=== PATIENT | male | born 1990 | race Caucasian/White ===

== ENCOUNTER 2023-01-25 14:17 | Inpatient (IN) ==
--- NOTE | 2023-01-25 14:57 | ED Triage Note ---
Date of Service January 25, 2023 History of Present Illness This patient was briefly evaluated while in triage. An abbreviated physical exam was performed. This patient is a 32-year-old Male who presents to the ED for evaluation of fever 106 today and vomiting. Tympanic thermometer. Developed L groin pain after vomiting. Maybe had a sore throat and some congestion today. No chest pain. Feeling short of breath now that he's in the ED. Does endorse anxiety but does not feel that is contributing to his symptoms today. Took 325 acetaminophen prior to arrival. Physical Exam CONSTITUTIONAL: uncomfortable appearing SKIN: pink, warm, dry CARDIAC: Tachycardic rate and regular rhythm RESPIRATORY: in no respiratory distress, lungs clear to auscultation ABDOMEN: Tenderness in left inguinal region Initial orders for labs and / or imaging were placed and patient was placed in the waiting area until a bed is available. Please see further documentation for the full ED course.
[2023-01-25 15:35] LABS: Albumin Globulin Ratio 1.5 (0.9-2); Albumin Level 4.8 gm/dl (3.4-5.0); BUN Creatinine Ratio 17.3 (10-20); Basophils # (auto) 0.04 K/uL (0.00-0.20); Basophils % (auto) 0.2 %; Bilirubin,Total 0.7 mg/dl (0.2-1.0); Calcium 9.8 mg/dl (8.6-10.3); Creatinine Clr Calc Pharmacy 167.7 ml/min; Eosinophils # (auto) 0.03 K/uL (0.00-0.50); Eosinophils % (auto) 0.2 %; Est GFR (African American) 116.1 ml/min; Est GFR (Non-African American) 100.2 ml/min; Globulin 3.3 gm/dl (2.5-4.0); Hematocrit (blood only) 42.7 % (42.0-52.0); Hemoglobin 14.9 g/dl (14.0-18.0); Immature Granulocytes # (auto) 0.15 K/uL (0.01-0.20); Immature Granulocytes % (auto) 0.9 %; Lymphocytes # (auto) 0.83 K/uL (1.20-3.40); Lymphocytes % (auto) 5.1 %; Mean Corpuscular Hemoglobin 29.3 pg (25.0-34.0); Mean Corpuscular Hgb Conc 34.9 g/dL (32.0-36.0); Mean Corpuscular Volume 83.9 fL (80.0-100.0); Mean Platelet Volume 9.6 fL (9.4-12.4); Monocytes # (auto) 0.95 K/uL (0.11-0.59); Monocytes % (auto) 5.8 %; Neutrophils % (auto) 87.8 %; Platelet Count 213 K/uL (130-400); Potassium 3.7 mmol/L (3.5-5.1); RDW Coefficient of Variation 12.9 % (11.5-14.5); Red Blood Count 5.09 M/uL (4.70-6.10); Total Protein 8.1 gm/dl (6.0-8.3)
[2023-01-25 15:41] LABS: Troponin I High Sensitivity 3.9 pg/ml (0-20)
[2023-01-25] MEDS ORDERED: SODIUM CHLORIDE 0.9% 1,000 ML IV ONE ×2 (15:59→16:10)
[2023-01-25] MEDS ORDERED: CEFEPIME 2,000 MG/20 ML VIAL IV STA (15:59)
[2023-01-25] MEDS ORDERED: ALBUTEROL HFA 8 GM INHALER INH ONE (16:00)
[2023-01-25 16:06] LABS: Adenovirus PCR Not Detected (NotDetected); Bordetella parapertussis PCR Not Detected (NotDetected); Bordetella pertussis PCR Not Detected (NotDetected); Chlamydia pneumoniae PCR Not Detected (NotDetected); Coronavirus 229E PCR Not Detected (NotDetected); Coronavirus CoV-2 (COVID19)PCR Not Detected (NotDetected); Coronavirus HKU1 PCR Not Detected (NotDetected); Coronavirus NL63 PCR Not Detected (NotDetected); Coronavirus OC43PCR Not Detected (NotDetected); Human Metapneumovirus PCR Not Detected (NotDetected); Influenza A PCR Not Detected (NotDetected); Influenza B PCR Not Detected (NotDetected); Mycoplasma pneumoniae PCR Not Detected (NotDetected); Parainfluenza Virus 1 PCR Not Detected (NotDetected); Parainfluenza Virus 2 PCR Not Detected (NotDetected); Parainfluenza Virus 3 PCR Not Detected (NotDetected); Parainfluenza Virus 4 PCR Not Detected (NotDetected); Respiratory Syncytial VirusPCR Not Detected (NotDetected); Rhinovirus/Enterovirus PCR Not Detected (NotDetected)
[2023-01-25] MEDS ORDERED: KETOROLAC TROMETHAMINE 15 MG/ML VIAL IV STA (16:10)
--- NOTE | 2023-01-25 16:14 | Emergency Department Note ---
Impression & Plan Sepsis, Cellulitis, Tachycardia, Leukocytosis, Pneumonia, Elevated lactic acid level, Hypomagnesemia ED Provider Note NAME: AMADO KIRKPATRICK AGE: 32 SEX: M : 1990 ARRIVES VIA: Walk-In INFORMANT: [Patient][] ED PROVIDER(S): [Jb Horta MD] CHIEF COMPLAINT: Fever HISTORY OF PRESENT ILLNESS: The patient is a 32-year-old male who states that he may have had a slight sore throat for a few days but otherwise felt well. This morning around 6 hours ago, he began shivering with sweats. He vomited. He began noticing pain in the left groin. He felt a little bit short of breath at 1 point. He has not noticed a rash, has been no diarrhea or urinary complaints. No abdominal pain. He has not been coughing, no stuffy nose. The patient did take a COVID test at home and it was negative. The patient states that he has prediabetes, he is otherwise healthy. On further questioning, the patient admits that he may have actually noticed a little bit of swelling of his left leg last night before bed. This is the same leg that was painful today. PMHx/PSHx: See Below SOCIAL HISTORY: See Below. PHYSICAL EXAM: GENERAL: Patient is in no acute distress. HEENT: No acute trauma, normocephalic atraumatic, mucous membranes moist, no nasal congestion. NECK: No stridor, no adenopathy, no meningismus, trachea is midline. LUNGS: Clear to auscultation bilaterally, no wheeze, no rhonchi, breath sounds equal. HEART: Mildly tachycardic, regular rhythm, no murmurs. ABDOMEN: Soft, nontender, bowel sounds positive, no peritonitis. EXTREMITIES: No cyanosis. The patient does have warmth, erythema to the left distal leg around an area of an old scar. He is tender in the area of the left groin. No crepitus felt. NEUROLOGIC: Oriented x 3, no acute motor or sensory deficits, no focal weakness. SKIN: No jaundice, no diaphoresis. Groin: There is no scrotal erythema or evidence for infection. No rash. DIFFERENTIAL DIAGNOSIS: Bacteremia or sepsis, necrotizing fasciitis, cellulitis, pneumonia, dehydration, electrolyte imbalance, tickborne illness, UTI, viral illness, among others. EMERGENCY DEPARTMENT COURSE/PROCEDURES: Prior/Outside records reviewed: None. ECG per my interpretation: Indication was possible sepsis. The ECG shows sinus tachycardia with a rate of 143. There is some baseline artifact that appears fairly diffuse. There is no ST elevation, no PVCs. There is some poor R wave progression. QTc is 429. Continuous Cardiac Monitoring per my interpretation: An order was placed for continuous cardiac monitoring. The monitor shows a rate of 148 with sinus tachycardia. Critical Care Note: I have personally spent 52 minutes of critical care time in the direct management of this patient. This includes bedside care, interpretati on of diagnostic studies, and testing, discussion with consultants, patient, and family members, and other required patient management activities. This 52 minutes is in excess of all separately billable procedures. MEDICAL DECISION MAKING: There is a moderate leukocytosis, this would be consistent with infection. There is no anemia or platelet count. No concerning electrolyte abnormality. Lactic acid level was elevated consistent with infection and possible sepsis. Magnesium was slightly low at 1.5. No concerning liver enzyme elevation. Procalcitonin level was not not elevated making serious bacterial infection less likely. ECG showed a sinus tachycardia, no obvious ischemia. Cardiac enzyme testing x1 was not consistent with acute cardiac injury. Urinalysis showed ketones, no infection. Babesia and anaplasmosis smears were negative, the send out testing is pending. Lyme disease testing returned negative. Respiratory bio fire returned completely negative. Chest film per my review does show a mid right lung pneumonia. No pneumothorax. Left femur CT shows adenopathy, no evidence for abscess or necrotizing fasciitis. On exam, patient did have a left lower extremity cellulitis. He was febrile and tachycardic. The patient does not meet criteria for sepsis. He was aggressively managed. He received IV saline, 2 L. He was given IV magnesium, IV Toradol, IV cefepime and IV vancomycin. The patient appears to have 2 potential sources for infection. The left lower extremity and the right lung. Hospitalization is indicated. I spoke with the patient and case management, the on-call hospitalist was consulted. DISPOSITION: Patient's presentation and findings warrant a hospital stay. Past Med/Surg History Medical History Obesity SAMINA on CPAP Prediabetes Surgical History History of dental surgery S/P left knee arthroscopy Social History Smoking Status: Never smoker Preferred Language: Mongolian Feels Safe at Home: Yes Allergies Allergies Allergy/AdvReac Type Severity Reaction Status Date / Time No Known Allergies Unverified 01/25/23 19:59 Home Meds Home Medications Medication Instructions Recorded Confirmed chlorpheniramine 2 2 tab PO DIRECTED PRN Flu 01/25/23 01/25/23 mg-phenylephrine 5 Symptoms mg-acetaminophen 325 mg tablet loratadine 10 mg tablet (Claritin) 10 mg PO DAILY PRN allergies 01/25/23 01/25/23 naproxen sodium 220 mg tablet 220 mg PO BID PRN Fever Or Pain 01/25/23 01/25/23 (Aleve) Results & Data (ED) Vital Signs Vital Signs - 24 hr 01/25/23 14:46 01/25/23 16:22 01/25/23 16:22 Temperature 37.9 C H Temperature Source Oral Pulse Rate 148 H Pulse Rate [Right Finger] 129 H Respiratory Rate 20 22 Respiratory Depth Normal Blood Pressure 196/98 H Blood Pressure Mean 130 Pulse Oximetry 98 Oxygen Delivery Method Room Air Sepsis Recent Fever Within 48 Hours Yes Sepsis New/Unexplained Change in Mental Status N/A Sepsis Action Taken by Nursing No Action Required Home Medications Current Medication List: was personally reviewed by me Laboratory Data Attestation: I reviewed the patient's lab results. 01/25/23 15:04 01/25/23 15:04 Lab Results 01/25/23 01/25/23 01/25/23 Range/Units 15:03 15:04 15:04 WBC 16.40 H (4.8-10.8) K/ul RBC 5.09 (4.70-6.10) M/uL Hgb 14.9 (14.0-18.0) g/dl Hct 42.7 (42.0-52.0) % MCV 83.9 (80.0-100.0) fL MCH 29.3 (25.0-34.0) pg MCHC 34.9 (32.0-36.0) g/dL RDW Std Deviation 39.0 (36.4-46.3) fL RDW Coeff of Nickolas 12.9 (11.5-14.5) % Plt Count 213 (130-400) K/uL MPV 9.6 (9.4-12.4) fL Immature Gran % (Auto) 0.9 % Neut % (Auto) 87.8 % Lymph % (Auto) 5.1 % [place] % (Auto) 5.8 % Eos % (Auto) 0.2 % Baso % (Auto) 0.2 % Neut # (Auto) 14.40 H (1.40-6.50) K/uL Lymph # (Auto) 0.83 L (1.20-3.40) K/uL [place] # (Auto) 0.95 H (0.11-0.59) K/uL Eos # (Auto) 0.03 (0.00-0.50) K/uL Baso # (Auto) 0.04 (0.00-0.20) K/uL Immature Gran # (Auto) 0.15 (0.01-0.20) K/uL Sodium 133 L (136-145) mmol/L Potassium 3.7 (3.5-5.1) mmol/L Chloride 99 (98-107) mmol/L Carbon Dioxide 24 (21-32) mmol/L Anion Gap 10 (3-11) BUN 17 (6-23) mg/dl Creatinine 0.98 (0.6-1.4) mg/dl Est Cr Clr Drug Dosing 167.7 ml/min Est GFR ( Amer) 116.1 ml/min Est GFR (Non-Af Amer) 100.2 ml/min BUN/Creatinine Ratio 17.3 (10-20) Glucose 133 H (70-99(Fasting)) mg/dl Lactate (0.4-2.0) mmol/L Calcium 9.8 (8.6-10.3) mg/dl Magnesium 1.5 L (1.7-2.4) mg/dl Total Bilirubin 0.7 (0.2-1.0) mg/dl AST 17 (13-39) U/L ALT 27 (7-52) U/L Alkaline Phosphatase 63 (34-104) U/L Troponin I High Sens 3.9 (0-20) pg/ml Total Protein 8.1 (6.0-8.3) gm/dl Albumin 4.8 (3.4-5.0) gm/dl Globulin 3.3 (2.5-4.0) gm/dl Albumin/Globulin Ratio 1.5 (0.9-2) Procalcitonin (0-0.5) ng/ml Urine Color Urine Appearance (Clear) Urine pH (4.5-7.5) Ur Specific [place] (1.000-1.030) Urine Protein (Negative) Urine Glucose (UA) (Negative) Urine Ketones (Negative) Urine Blood (Negative) Urine Nitrite (Negative) Urine Bilirubin (Negative) Urine Urobilinogen (Negative) Ur Leukocyte Esterase (Negative) Urine WBC (Auto) (0-5) /hpf Urine RBC (Auto) (0-4) /hpf U Hyaline Cast (Auto) (0-5) /lpf U Epithel Cells (Auto) (0-5) /lpf Urine Bacteria (Auto) (Negative) Adenovirus (PCR) Not Detected (NotDetected) Anaplasma Smear Babesia Smear B. pertussis DNA (PCR) Not Detected (NotDetected) B.parapertussis DNA PCR Not Detected (NotDetected) Lyme Disease IgG Ab (Negative) Lyme Disease IgM Ab (Negative) C. pneumoniae DNA (PCR) Not Detected (NotDetected) Coronavirus OC43 (PCR) Not Detected (NotDetected) Coronavirus HKU1 (PCR) Not Detected (NotDetected) Coronavirus 229E (PCR) Not Detected (NotDetected) SARS-CoV-2 (PCR) Not Detected (NotDetected) Coronavirus NL63 (PCR) Not Detected (NotDetected) Human Metapneumovir PCR Not Detected (NotDetected) Influenza Type A (PCR) Not Detected (NotDetected) Influenza Type B (PCR) Not Detected (NotDetected) M. pneumoniae (PCR) Not Detected (NotDetected) Parainfluenza 1 (PCR) Not Detected (NotDetected) Parainfluenza 2 (PCR) Not Detected (NotDetected) Parainfluenza 3 (PCR) Not Detected (NotDetected) Parainfluenza 4 (PCR) Not Detected (NotDetected) RSV (PCR) Not Detected (NotDetected) Entero/Rhino (PCR) Not Detected (NotDetected) 01/25/23 01/25/23 01/25/23 Range/Units 15:04 15:05 16:20 WBC (4.8-10.8) K/ul RBC (4.70-6.10) M/uL Hgb (14.0-18.0) g/dl Hct (42.0-52.0) % MCV (80.0-100.0) fL MCH (25.0-34.0) pg MCHC (32.0-36.0) g/dL RDW Std Deviation (36.4-46.3) fL RDW Coeff of Nickolas (11.5-14.5) % Plt Count (130-400) K/uL MPV (9.4-12.4) fL Immature Gran % (Auto) % Neut % (Auto) % Lymph % (Auto) % [place] % (Auto) % Eos % (Auto) % Baso % (Auto) % Neut # (Auto) (1.40-6.50) K/uL Lymph # (Auto) (1.20-3.40) K/uL [place] # (Auto) (0.11-0.59) K/uL Eos # (Auto) (0.00-0.50) K/uL Baso # (Auto) (0.00-0.20) K/uL Immature Gran # (Auto) (0.01-0.20) K/uL Sodium (136-145) mmol/L Potassium (3.5-5.1) mmol/L Chloride (98-107) mmol/L Carbon Dioxide (21-32) mmol/L Anion Gap (3-11) BUN (6-23) mg/dl Creatinine (0.6-1.4) mg/dl Est Cr Clr Drug Dosing ml/min Est GFR ( Amer) ml/min Est GFR (Non-Af Amer) ml/min BUN/Creatinine Ratio (10-20) Glucose (70-99(Fasting)) mg/dl Lactate 2.6 H* (0.4-2.0) mmol/L Calcium (8.6-10.3) mg/dl Magnesium (1.7-2.4) mg/dl Total Bilirubin (0.2-1.0) mg/dl AST (13-39) U/L ALT (7-52) U/L Alkaline Phosphatase (34-104) U/L Troponin I High Sens (0-20) pg/ml Total Protein (6.0-8.3) gm/dl Albumin (3.4-5.0) gm/dl Globulin (2.5-4.0) gm/dl Albumin/Globulin Ratio (0.9-2) Procalcitonin 0.30 (0-0.5) ng/ml Urine Color Urine Appearance (Clear) Urine pH (4.5-7.5) Ur Specific [place] (1.000-1.030) Urine Protein (Negative) Urine Glucose (UA) (Negative) Urine Ketones (Negative) Urine Blood (Negative) Urine Nitrite (Negative) Urine Bilirubin (Negative) Urine Urobilinogen (Negative) Ur Leukocyte Esterase (Negative) Urine WBC (Auto) (0-5) /hpf Urine RBC (Auto) (0-4) /hpf U Hyaline Cast (Auto) (0-5) /lpf U Epithel Cells (Auto) (0-5) /lpf Urine Bacteria (Auto) (Negative) Adenovirus (PCR) (NotDetected) Anaplasma Smear See Comment Babesia Smear See Comment B. pertussis DNA (PCR) (NotDetected) B.parapertussis DNA PCR (NotDetected) Lyme Disease IgG Ab Negative (Negative) Lyme Disease IgM Ab Negative (Negative) C. pneumoniae DNA (PCR) (NotDetected) Coronavirus OC43 (PCR) (NotDetected) Coronavirus HKU1 (PCR) (NotDetected) Coronavirus 229E (PCR) (NotDetected) SARS-CoV-2 (PCR) (NotDetected) Coronavirus NL63 (PCR) (NotDetected) Human Metapneumovir PCR (NotDetected) Influenza Type A (PCR) (NotDetected) Influenza Type B (PCR) (NotDetected) M. pneumoniae (PCR) (NotDetected) Parainfluenza 1 (PCR) (NotDetected) Parainfluenza 2 (PCR) (NotDetected) Parainfluenza 3 (PCR) (NotDetected) Parainfluenza 4 (PCR) (NotDetected) RSV (PCR) (NotDetected) Entero/Rhino (PCR) (NotDetected) 01/25/23 01/25/23 Range/Units 17:20 18:24 WBC (4.8-10.8) K/ul RBC (4.70-6.10) M/uL Hgb (14.0-18.0) g/dl Hct (42.0-52.0) % MCV (80.0-100.0) fL MCH (25.0-34.0) pg MCHC (32.0-36.0) g/dL RDW Std Deviation (36.4-46.3) fL RDW Coeff of Nickolas (11.5-14.5) % Plt Count (130-400) K/uL MPV (9.4-12.4) fL Immature Gran % (Auto) % Neut % (Auto) % Lymph % (Auto) % [place] % (Auto) % Eos % (Auto) % Baso % (Auto) % Neut # (Auto) (1.40-6.50) K/uL Lymph # (Auto) (1.20-3.40) K/uL [place] # (Auto) (0.11-0.59) K/uL Eos # (Auto) (0.00-0.50) K/uL Baso # (Auto) (0.00-0.20) K/uL Immature Gran # (Auto) (0.01-0.20) K/uL Sodium (136-145) mmol/L Potassium (3.5-5.1) mmol/L Chloride (98-107) mmol/L Carbon Dioxide (21-32) mmol/L Anion Gap (3-11) BUN (6-23) mg/dl Creatinine (0.6-1.4) mg/dl Est Cr Clr Drug Dosing ml/min Est GFR ( Amer) ml/min Est GFR (Non-Af Amer) ml/min BUN/Creatinine Ratio (10-20) Glucose (70-99(Fasting)) mg/dl Lactate 1.9 (0.4-2.0) mmol/L Calcium (8.6-10.3) mg/dl Magnesium (1.7-2.4) mg/dl Total Bilirubin (0.2-1.0) mg/dl AST (13-39) U/L ALT (7-52) U/L Alkaline Phosphatase (34-104) U/L Troponin I High Sens (0-20) pg/ml Total Protein (6.0-8.3) gm/dl Albumin (3.4-5.0) gm/dl Globulin (2.5-4.0) gm/dl Albumin/Globulin Ratio (0.9-2) Procalcitonin (0-0.5) ng/ml Urine Color Yellow Urine Appearance Clear (Clear) Urine pH 5.5 (4.5-7.5) Ur Specific [place] > 1.045 H (1.000-1.030) Urine Protein Trace H (Negative) Urine Glucose (UA) Negative (Negative) Urine Ketones Trace H (Negative) Urine Blood Negative (Negative) Urine Nitrite Negative (Negative) Urine Bilirubin Negative (Negative) Urine Urobilinogen Negative (Negative) Ur Leukocyte Esterase Negative (Negative) Urine WBC (Auto) 1-5 (0-5) /hpf Urine RBC (Auto) 0-4 (0-4) /hpf U Hyaline Cast (Auto) 1-5 (0-5) /lpf U Epithel Cells (Auto) 10-20 H (0-5) /lpf Urine Bacteria (Auto) Negative (Negative) Adenovirus (PCR) (NotDetected) Anaplasma Smear Babesia Smear B. pertussis DNA (PCR) (NotDetected) B.parapertussis DNA PCR (NotDetected) Lyme Disease IgG Ab (Negative) Lyme Disease IgM Ab (Negative) C. pneumoniae DNA (PCR) (NotDetected) Coronavirus OC43 (PCR) (NotDetected) Coronavirus HKU1 (PCR) (NotDetected) Coronavirus 229E (PCR) (NotDetected) SARS-CoV-2 (PCR) (NotDetected) Coronavirus NL63 (PCR) (NotDetected) Human Metapneumovir PCR (NotDetected) Influenza Type A (PCR) (NotDetected) Influenza Type B (PCR) (NotDetected) M. pneumoniae (PCR) (NotDetected) Parainfluenza 1 (PCR) (NotDetected) Parainfluenza 2 (PCR) (NotDetected) Parainfluenza 3 (PCR) (NotDetected) Parainfluenza 4 (PCR) (NotDetected) RSV (PCR) (NotDetected) Entero/Rhino (PCR) (NotDetected) Administered Medications Discontinued Medications Albuterol (Albuterol Hfa 8 Gm Inhaler) 2 puffs INH NOW ONE Stop: 01/25/23 16:01 Last Admin: 01/25/23 16:25 Dose: 2 puffs Documented By: NRB Sodium Chloride (Nss) 1,000 mls @ 999 mls/hr IV .Q1H1M ONE Stop: 01/25/23 16:59 Last Infusion: 01/25/23 17:30 Dose: 0 mls/hr Documented By: Admin: 01/25/23 16:21 Dose: 999 mls/hr Documented By: NRB Cefepime HCl (Maxipime) 2,000 mg in 20 mls @ 5 mls/min IV NOW STA; Protocol Stop: 01/25/23 16:02 Last Admin: 01/25/23 16:24 Dose: 5 mls/min Documented By: NRB Sodium Chloride (Nss) 1,000 mls @ 999 mls/hr IV .Q1H1M ONE Stop: 01/25/23 17:10 Last Infusion: 01/25/23 18:17 Dose: 0 mls/hr Documented By: Admin: 01/25/23 16:22 Dose: 999 mls/hr Documented By: NRB Magnesium Sulfate/Dextrose (Magnesium Sulfate / D5w) 1 gm in 100 mls @ 100 mls/hr IV NOW STA Stop: 01/25/23 17:56 Last Infusion: 01/25/23 18:44 Dose: 0 mls/hr Documented By: Admin: 01/25/23 17:24 Dose: 100 mls/hr Documented By: NRB Vancomycin HCl 2,750 mg/ (Sodium Chloride) 555 mls @ 200 mls/hr IV NOW ONE Stop: 01/25/23 21:21 Last Admin: 01/25/23 19:56 Dose: 200 mls/hr Documented By: AB Magnesium Sulfate/Dextrose (Magnesium Sulfate / D5w) 1 gm in 100 mls @ 50 mls/hr IV ONE ONE Stop: 01/25/23 21:18 Last Admin: 01/25/23 22:03 Dose: 50 mls/hr Documented By: AB Piperacillin Sod/Tazobactam (Sod 4.5 gm/ Dextrose) 100 mls @ 200 mls/hr IV NOW ONE; Protocol Stop: 01/25/23 21:59 Last Infusion: 01/25/23 22:57 Dose: 0 mls/hr Documented By: Admin: 01/25/23 22:25 Dose: 200 mls/hr Documented By: AB Ioversol (Optiray 320 500ml) 113 ml IV ONCE ONE Stop: 01/25/23 17:13 Last Admin: 01/25/23 17:13 Dose: 113 ml Documented By: MICHELLE Ketorolac Tromethamine (Ketorolac Tromethamine 15 Mg/Ml Vial) 15 mg IV NOW STA Stop: 01/25/23 16:11 Last Admin: 01/25/23 16:23 Dose: 15 mg Documented By: GUSTAVO Imaging Data Radiologist's Impression: Chest X-Ray 01/25/23 14:50 XR chest 1V portable CLINICAL HISTORY: tachycardia, fever, vomit TECHNIQUE: Single frontal radiograph of the chest was obtained. Comparison: None available at the time of this dictation. FINDINGS: Exam is limited by underpenetration. The cardiomediastinal silhouette is normal. Airspace opacity in the right medial lower lung is nonspecific. No evidence of pleural effusion or pneumothorax. IMPRESSION: Airspace opacity in the medial right lower lung may represent atelectasis, scarring, aspiration, and/or pneumonia. ACT 112: Negative or not required by law. Electronically signed by: Kings Avalos M.D. 01/25/2023 5:[address] 01/25/23 16:10 CT femur LT w con CLINICAL HISTORY: poss deep skin infection, pain left groin fever TECHNIQUE: Multidetector row helical CT of the left thigh was performed without intravenous contrast. Coronal and sagittal reformations were obtained. Automated dose lowering techniques and/or adjustment according to patient size were utilized for this examination. CT DOSE: 1157.45 mGy.cm Comparison: None available at the time of this dictation. FINDINGS: The osseous structures are without fracture or dislocation. The joint spaces are maintained. No joint effusion is seen. 11 mm external iliac lymph node is seen on the left. Prominent left inguinal lymph nodes measure up to 18 mm in short axis. No significant fat stranding, drainable fluid collection or other acute abnormalities are seen. IMPRESSION: Lymphadenopathy is seen in the left inguinal and visualized external iliac chain, however there is no fat stranding to suggest cellulitis, and no evidence of abscess. ACT 112: Negative or not required by law. Electronically signed by: Kings Avalos M.D. 01/25/2023 6:20 PM Discharge Plan Visit Data Chief Complaint: Fever Stated Complaint: FLU LIKE SYMPTOMS, FEVER 106 ED Provider: Jb Horta Discharge Problem: Sepsis, Cellulitis, Tachycardia, Leukocytosis, Pneumonia, Elevated lactic acid level, Hypomagnesemia Patient Disposition: Admitted As Inpatient Condition: Fair Discharge Instructions Interventions: ED Discharge Assessment Last Done: 01/25/23 21:05
[2023-01-25 16:50] LABS: Magnesium 1.5 mg/dl (1.7-2.4)
[2023-01-25] MEDS ORDERED: MAGNESIUM SULFATE / D5W 1 GM/100 ML BAG IV STA (16:57)
--- NOTE | 2023-01-25 17:07 | XRay Report ---
XR chest 1V portable CLINICAL HISTORY: tachycardia, fever, vomit TECHNIQUE: Single frontal radiograph of the chest was obtained. Comparison: None available at the time of this dictation. FINDINGS: Exam is limited by underpenetration. The cardiomediastinal silhouette is normal. Airspace opacity in the right medial lower lung is nonspecific. No evidence of pleural effusion or pneumothorax. IMPRESSION: Airspace opacity in the medial right lower lung may represent atelectasis, scarring, aspiration, and/ or pneumonia. ACT 112: Negative or not required by law. Electronically signed by: Kings Avalos M.D. 01/25/2023 5:05 PM
[2023-01-25] MEDS ORDERED: OPTIRAY 320 500ml IV ONE (17:12)
[2023-01-25 17:19] LABS: Lyme Ab IgG w/WB Rflx Negative (Negative); Lyme Ab IgM w/WB Rflx Negative (Negative)
[2023-01-25 17:36] LABS: Appearance Urine Clear (Clear); Bacteria Urine Automated Negative (Negative); Bilirubin Urine Negative (Negative); Blood Urine Negative (Negative); Color Urine Yellow; Glucose Urine UA Negative (Negative); Ketones Urine Trace (Negative); Leukocyte Esterase Urine Negative (Negative); Nitrite Urine Negative (Negative); Protein Urine Trace (Negative); RBC Urine Automated 0-4 /hpf (0-4); Specific Gravity Urine > 1.045 (1.000-1.030); Urobilinogen Urine Negative (Negative); pH Urine 5.5 (4.5-7.5)
--- NOTE | 2023-01-25 18:21 | CT Scan Report ---
CT femur LT w con CLINICAL HISTORY: poss deep skin infection, pain left groin fever TECHNIQUE: Multidetector row helical CT of the left thigh was performed without intravenous contrast. Coronal and sagittal reformations were obtained. Automated dose lowering techniques and/or adjustmen t according to patient size were utilized for this examination. CT DOSE: 1157.45 mGy.cm Comparison: None available at the time of this dictation. FINDINGS: The osseous structures are without fracture or dislocation. The joint spaces are maintained. No joint effusion is seen. 11 mm external iliac lymph node is seen on the left. Prominent left inguinal lymp h nodes measure up to 18 mm in short axis. No significant fat stranding, drainable fluid collection o r other acute abnormalities are seen. IMPRESSION: Lymphadenopathy is seen in the left inguinal and visualized external iliac chain, however there is no fat stranding to suggest cellulitis, and no evidence of abscess. ACT 112: Negative or not required by law. Electronically signed by: Kings Avalos M.D. 01/25/2023 6:20 PM
[2023-01-25] MEDS ORDERED: VANCOMYCIN HCL 2,750 MG in SODIUM CHLORIDE 0.9% 500 ML IV ONE (18:35)
[2023-01-25] MEDS ORDERED: VANCOMYCIN CONSULT ACTIVE PRN (18:35)
[2023-01-25] MEDS ORDERED: MAGNESIUM SULFATE / D5W 1 GM/100 ML BAG IV ONE (19:19)
--- NOTE | 2023-01-25 19:53 | History & Physical Report ---
Date of Service January 25, 2023 Assessment & Plan (1) Severe sepsis: (2) Cellulitis: Plan: Admit to [facility] with telemetry Patient presenting from home with fever (reported 105 at home) and 1 episode of vomiting. On presentation, tachycardic, WBC 16 K, lactate 2.6 -> 1.9 Redness noted to the left anterior stevens and warm to touch, no open areas or drainage noted CT left femur shows lymphadenopathy S/p Vanco and cefepime in the ED, continue with Vanco and Zosyn Follow blood cultures CXR questions possible pneumonia however given lack of pulmonary symptoms, doubt pneumonia at this time (3) Prediabetes: Plan: Hgb A1c 6.2 03/2020, will update with a.m. labs (4) SAMINA on CPAP: Plan: CPAP as per home settings DVT PROPHYLAXIS SQ Lovenox Patient seen in collaboration with Dr. Bates. I spent a total of 75 minutes coordinating, documenting, and providing care for this patient excluding time spent in the performance of separately billed services. This included personally reviewing all current laboratories and imaging studies, medication reconciliation, outpatient chart review, and discussion with specialists. History of Present Illness Chief Complaint: Fever Primary Care Provider: NO PCP 32-year-old male with PMH obesity, SAMINA on CPAP, prediabetes, and other problems listed below who presents to the ED for evaluation of fever. Patient reports that around 9:00 this morning, he developed chills and rigors. Reports associated nausea and one episode of vomiting. Had a low-grade fever at that time. Later in the afternoon, fever went up to 105. No abdominal pain or diarrhea. Patient denies cough and sputum production. In the ED, patient was noted to have mild redness to the left lower extremity. Patient reports he was unaware that it was red. He denies chest pain and shortness of breath. No lightheadedness, dizziness, diaphoresis, syncopal events. Denies urinary symptoms. In the ED, patient was tachycardic in the 140s with low-grade temp. Labs show WBC 16 K, initial lactate 2.6, Mg +1.5. CXR shows possible right middle lobe pneumonia. Left femur CT shows Lymphadenopathy is seen in the left inguinal and visualized external iliac chain, no evidence of abscess. Patient was given IV cefepime, IV Vanco, magnesium replacement, IVF. Allergies Allergy/AdvReac Type Severity Reaction Status Date / Time No Known Allergies Unverified 01/25/23 19:59 Home Medications Medication Instructions Recorded Confirmed Type chlorpheniramine 2 2 tab PO DIRECTED PRN Flu 01/25/23 01/25/23 History mg-phenylephrine 5 Symptoms mg-acetaminophen 325 mg tablet loratadine 10 mg tablet (Claritin) 10 mg PO DAILY PRN allergies 01/25/23 01/25/23 History naproxen sodium 220 mg tablet 220 mg PO BID PRN Fever Or Pain 01/25/23 01/25/23 History (Aleve) Past Med/Surg History Medical History Obesity SAMINA on CPAP Prediabetes Surgical History History of dental surgery S/P left knee arthroscopy Social History Smoking Status: Never smoker Preferred Language: Israeli Feels Safe at Home: Yes Physical Exam Constitutional: + obese; no acute distress Eyes: PERRL, conjunctivae normal, anicteric sclerae ENMT: external ear and nose normal, oropharynx normal Respiratory: normal respiratory effort, lungs clear to auscultation Cardiovascular: Rate/Rhythm: regular rate and regular rhythm Vessels: normal peripheral pulses Extremities: no edema Gastrointestinal (Abdomen): normal bowel sounds, soft, nontender, no hepatosplenomegaly Musculoskeletal: no cyanosis or clubbing, extremities motor strength 5/5 Skin: no rashes, warm and dry Mild erythema noted on the left stevens, warm to touch. No open areas or drainage noted. Neurologic: PERRL, EOMI, accommodation nl, no face palsy, no dysarthria Psychiatric: A+Ox3, euthymic affect Results & Data Results & Data Vital Signs (Past 12 Hours) Vital Signs Temp Pulse Pulse Resp BP Pulse Ox O2 Del Method 01/25/23 16:22 37.9 C H 01/25/23 16:22 129 H 22 01/25/23 14:46 148 H 20 196/98 H 98 Room Air Laboratory Results Short CBC 01/25/23 Range/Units 15:04 WBC 16.40 H (4.8-10.8) K/ul Hgb 14.9 (14.0-18.0) g/dl Hct 42.7 (42.0-52.0) % Plt Count 213 (130-400) K/uL BMP 01/25/23 15:04 Sodium 133 L Potassium 3.7 Chloride 99 Carbon Dioxide 24 BUN 17 Creatinine 0.98 Glucose 133 H Calcium 9.8 Liver Function 01/25/23 Range/Units 15:04 Total Bilirubin 0.7 (0.2-1.0) mg/dl AST 17 (13-39) U/L ALT 27 (7-52) U/L Alkaline Phosphatase 63 (34-104) U/L Albumin 4.8 (3.4-5.0) gm/dl Urine 01/25/23 Range/Units 17:20 Urine Color Yellow Urine Appearance Clear (Clear) Urine pH 5.5 (4.5-7.5) Ur Specific [place] > 1.045 H (1.000-1.030) Urine Protein Trace H (Negative) Urine Glucose (UA) Negative (Negative) Diagnostic Findings Chest X-Ray 01/25/23 14:50 XR chest 1V portable CLINICAL HISTORY: tachycardia, fever, vomit TECHNIQUE: Single frontal radiograph of the chest was obtained. Comparison: None available at the time of this dictation. FINDINGS: Exam is limited by underpenetration. The cardiomediastinal silhouette is normal. Airspace opacity in the right medial lower lung is nonspecific. No evidence of pleural effusion or pneumothorax. IMPRESSION: Airspace opacity in the medial right lower lung may represent atelectasis, scarring, aspiration, and/or pneumonia. ACT 112: Negative or not required by law. Electronically signed by: Kings Avalos M.D. 01/25/2023 5:[address] 01/25/23 16:10 CT femur LT w con CLINICAL HISTORY: poss deep skin infection, pain left groin fever TECHNIQUE: Multidetector row helical CT of the left thigh was performed without intravenous contrast. Coronal and sagittal reformations were obtained. Automated dose lowering techniques and/or adjustment according to patient size were utilized for this examination. CT DOSE: 1157.45 mGy.cm Comparison: None available at the time of this dictation. FINDINGS: The osseous structures are without fracture or dislocation. The joint spaces are maintained. No joint effusion is seen. 11 mm external iliac lymph node is seen on the left. Prominent left inguinal lymph nodes measure up to 18 mm in short axis. No significant fat stranding, drainable fluid collection or other acute abnormalities are seen. IMPRESSION: Lymphadenopathy is seen in the left inguinal and visualized external iliac chain, however there is no fat stranding to suggest cellulitis, and no evidence of abscess. ACT 112: Negative or not required by law. Electronically signed by: Kings Avalos M.D. 01/25/2023 6:20 PM Code Status & VTE Plan VTE Prophylaxis Plan VTE Prophylaxis will be ordered: Yes Supervising Physician Co-Signing Physician Notes I have seen and discussed the case with the collaborating OPEN END SPINNING OPERATOR. I agree with the above H&P. I have reviewed and confirmed the patients medical history, the findings on physical examination, and the patients diagnosis and treatment plan with Love OPEN END SPINNING OPERATOR and agree with the information documented. In short, Mr. Duncan is a 32 year old gentleman with history of SAMINA,prediabetes admitted for sepsis, thought to be secondary to cellulitis. Patient with tender area of erythema, nonpurulent patch on left lower extremity with tender LAD in left groin, which is confirmed on CT imaging. No other lesions reported. Concern for bacteremia given encephalopathy, fevers, and episode of projectile vomiting at home--with subsequent and rapid improvement after abx initiation in ED. VS stable, outside of temp 37.9 on admission and tachycardia. WBC to 16.40. Mag 1.5. Biofire negative. Plan to treat with broad IV abx in the interim with presumptive source LLE cellulitis (full groin, lower extremity legs reviewed and not other source that would explain left groin LAD). Plan as above.
[2023-01-25] MEDS ORDERED: ACETAMINOPHEN 325 MG TAB PO PRN (21:05)
[2023-01-25] MEDS ORDERED: PIPER/TAZO 4.5g in D5W MINI-B 100 ML IV ONE (21:30)
[2023-01-26 04:35] LABS: Hematocrit (blood only) 36.6 % (42.0-52.0); Hemoglobin 12.7 g/dl (14.0-18.0); Mean Corpuscular Hgb Conc 34.7 g/dL (32.0-36.0); Mean Corpuscular Volume 83.6 fL (80.0-100.0); Mean Platelet Volume 9.9 fL (9.4-12.4); Platelet Count 179 K/uL (130-400); RDW Coefficient of Variation 13.2 % (11.5-14.5); RDW Standard Deviation 40.5 fL (36.4-46.3); Red Blood Count 4.38 M/uL (4.70-6.10); White Blood Count 10.55 K/ul (4.8-10.8)
[2023-01-26] MEDS: PIPERACILLIN/TAZOBACTAM 4.5 GM in DEXTROSE 5% MINI-B 100 ML IV SCH ×3 (04:35→19:38)
[2023-01-26 04:53] LABS: BUN Creatinine Ratio 16.5 (10-20); Calcium 8.4 mg/dl (8.6-10.3); Creatinine Clr Calc Pharmacy 159.7 ml/min; Est GFR (African American) 109.3 ml/min; Est GFR (Non-African American) 94.3 ml/min; Potassium 3.4 mmol/L (3.5-5.1)
[2023-01-26 07:08] LABS: Estimated Average Glucose 128 mg/dl; Hemoglobin A1C 6.1 % (4.5-5.6)
[2023-01-26] MEDS: VANCOMYCIN HCL 1,500 MG in SODIUM CHLORIDE 0.9% 500 ML IV SCH ×2 (08:19→19:36)
[2023-01-26] MEDS ORDERED: POTASSIUM CHLORIDE CRTAB 20 MEQ TABCR PO STA (10:11)
--- NOTE | 2023-01-26 10:12 | Hospitalist Progress Note ---
Date of Service January 26, 2023 Assessment & Plan (1) Severe sepsis: (2) Cellulitis: Plan: Resuscitated from sepsis standpoint. Continue Zosyn and vancomycin pending culture results and continued clinical improvement. Likely culprit is the right lower extremity cellulitis which is improved. White blood cell count is also improving. CXR questions possible pneumonia however given lack of pulmonary symptoms, doubt pneumonia at this time. Possible aspiration with vomiting and choking reported by patient yesterday. Continue with Zosyn given this history and severe sepsis on arrival. Plan to de-escalate to oral antibiotics tomorrow pending blood culture reports. (3) Pneumonia: Plan: Less likely given lack of respiratory symptoms. However given sepsis presentation and infiltrate on imaging, would continue short course of antibiotic treatment for aspiration pneumonia. (4) Electrolyte abnormality: Plan: Hypomagnesemia resolved with replacement. Gave additional potassium supplementation this morning for a K of 3.4. Continue to trend with BMP in AM. (5) Prediabetes: Plan: Hgb A1c 6.1 03/2020,Diet controlled (6) SAMINA on CPAP: Plan: CPAP as per home settings (7) Morbid obesity: Plan: Weight loss recommended for overall general improvement in health. Full code DVT prophylaxis-Lovenox, SCDs, ambulation Disposition-telemetry, likely home in next 1 to 2 days Klarissa Brothers DO [facility] Hospitalist Admission and Anticipated Discharge Date Admission Date: January 25, 2023 Subjective 32-year-old man presents with sepsis secondary to right lower extremity cellulitis. He had a high fever overnight which appears to has defervesced. He no longer has chills or rigors and his heart rate has come down after resuscitation from sepsis. Right lower extremity is still erythematous but patient has noticed that his right groin lymphadenopathy although still sore has decreased in size. No significant coughing or shortness of breath noted and patient not hypoxic. Physical Exam Physical Exam: CONSTITUTIONAL: obese, vitals as above, generally well-appearing EYES: normal conjunctivae, no scleral icterus ENT: external ear and nose normal, oropharynx clear, MMM NECK: trachea midline, RESPIRATORY: clear to auscultation bilaterally, no crackles, rales or wheezes, normal respiratory effort CARDIOVASCULAR: regular rate and rhythm, S1 and 2 heard without murmurs, gallops or rubs, no JVD, no peripheral edema CHEST: inspection of chest was normal GASTROINTESTINAL: soft, nontender, ND, no guarding MUSCULOSKELETAL: strength 5/5 throughout, head is normocephalic and atraumatic, SKIN: warm and dry, right lower extremity anterior erythema with evidence of previous wound that is well-healed. This area is still warm to touch with erythema extending from the ankle to the mid stevens excluding the foot. NEUROLOGIC: CN 2-12 grossly intact, no sensory deficit, normal cognition, normal speech, no tremor PSYCHIATRIC: alert cooperative and oriented to person, place and time. Euthymic mood, makes good eye contact, language grossly intact, recent and remote memory grossly intact. LYMPHATIC: No inguinal lymphadenopathy on the right however this area is sore to touch. Results & Data Results & Data Vital Signs (Past 12 Hours) Vital Signs Temp Pulse Pulse Resp BP BP Pulse Ox 01/26/23 08:51 01/26/23 08:50 36.9 C 97 H 20 131/75 96 01/26/23 07:01 105 H 01/26/23 02:26 37.3 C 01/26/23 01:29 38.9 C H 01/26/23 01:00 116 H 16 01/26/23 00:56 114 H 23 01/26/23 00:56 123/75 01/26/23 00:00 118 H 26 H 01/25/23 23:00 115 H 21 O2 Del Method 01/26/23 08:51 Room Air 01/26/23 08:50 Room Air 01/26/23 07:01 01/26/23 02:26 01/26/23 01:29 01/26/23 01:00 01/26/23 00:56 01/26/23 00:56 01/26/23 00:00 01/25/23 23:00 Laboratory Results Short CBC 01/25/23 01/26/23 Range/Units 15:04 03:35 WBC 16.40 H 10.55 (4.8-10.8) K/ul Hgb 14.9 12.7 L (14.0-18.0) g/dl Hct 42.7 36.6 L (42.0-52.0) % Plt Count 213 179 (130-400) K/uL BMP 01/25/23 01/26/23 15:04 03:35 Sodium 133 L 136 Potassium 3.7 3.4 L Chloride 99 104 Carbon Dioxide 24 23 BUN 17 17 Creatinine 0.98 1.03 Glucose 133 H 121 H Calcium 9.8 8.4 L Liver Function 01/25/23 Range/Units 15:04 Total Bilirubin 0.7 (0.2-1.0) mg/dl AST 17 (13-39) U/L ALT 27 (7-52) U/L Alkaline Phosphatase 63 (34-104) U/L Albumin 4.8 (3.4-5.0) gm/dl Urine 01/25/23 Range/Units 17:20 Urine Color Yellow Urine Appearance Clear (Clear) Urine pH 5.5 (4.5-7.5) Ur Specific [place] > 1.045 H (1.000-1.030) Urine Protein Trace H (Negative) Urine Glucose (UA) Negative (Negative) Medications Administered Current Inpatient Medications Acetaminophen (Acetaminophen 325 Mg Tab) 650 mg PO Q4H PRN PRN Reason: pain/fever Stop: 02/24/23 21:04 Last Admin: 01/26/23 01:30 Dose: 650 mg Piperacillin Sod/Tazobactam (Sod 4.5 gm/ Dextrose) 100 mls @ 25 mls/hr IV Q8H JOANN; Protocol Stop: 02/02/23 03:59 Last Infusion: 01/26/23 08:35 Dose: Infused Vancomycin HCl 1,500 mg/ (Sodium Chloride) 530 mls @ 200 mls/hr IV Q12H JOANN Stop: 02/02/23 07:59 Last Admin: 01/26/23 08:19 Dose: 200 mls/hr Miscellaneous Information (Vancomycin Consult Active) 1 each N/A UD PRN PRN Reason: Consult Stop: 02/24/23 18:34 Potassium Chloride (Potassium Chloride Crtab 20 Meq Tabcr) 40 meq PO NOW STA Stop: 01/26/23 10:12 (3) Pneumonia Laterality: right Lung location: middle lobe of lung Pneumonia type: due to unspecified organism Qualified Code(s): J18.9 - Pneumonia, unspecified organism
--- NOTE | 2023-01-26 12:39 | Pharmacy Report ---
Pharmacy Vanc AUC Short Note - Date of Service January 26, 2023 - Assessment & Plan Assessment * 32 year old M receiving VANCOMYCIN + ZOSYN for treatment of LLE cellulitis, possible PNA. * Pertinent microbiologic data includes: Negative Lyme IgG/IgM, smear negative for anaplasma and babesiosis however serologies pending, respiratory BioFire negative, BLCXs pending, MRSA nasal swab pending Plan Vancomycin * AUC/NARAYAN is the preferred PK/PD target for vancomycin * AUC guided dosing is effective and associated with decreased risk of nephrotoxicity compared to traditional trough targets * Loading dose: 2750mg x 1 * Maint dose: 1500mg IV Q 12 hrs is predicted to achieve target AUC/NARAYAN of 400- 600 mg/L.hr and may be associated with a 9 % risk of nephrotoxicity * Level ordered for: 01/27/23 Pharmacy will continue to follow and will adjust dose/frequency as necessary. Thank you.
[2023-01-27] MEDS: PIPERACILLIN/TAZOBACTAM 4.5 GM in DEXTROSE 5% MINI-B 100 ML IV SCH ×2 (04:37→13:11)
[2023-01-27 06:28] LABS: Hematocrit (blood only) 38.4 % (42.0-52.0); Mean Corpuscular Hgb Conc 33.9 g/dL (32.0-36.0); Mean Corpuscular Volume 85.7 fL (80.0-100.0); Mean Platelet Volume 9.7 fL (9.4-12.4); Platelet Count 163 K/uL (130-400); RDW Coefficient of Variation 13.2 % (11.5-14.5); RDW Standard Deviation 41.3 fL (36.4-46.3); Red Blood Count 4.48 M/uL (4.70-6.10); White Blood Count 5.13 K/ul (4.8-10.8)
[2023-01-27 06:54] LABS: BUN Creatinine Ratio 14.4 (10-20); Calcium 8.4 mg/dl (8.6-10.3); Creatinine Clr Calc Pharmacy 182.8 ml/min; Est GFR (African American) 128.7 ml/min; Potassium 3.8 mmol/L (3.5-5.1)
--- NOTE | 2023-01-27 06:59 | Electrocardiogram Report ---
Test Reason : Blood Pressure : / mmHG Vent. Rate : 143 BPM Atrial Rate : 143 BPM P-R Int : 142 ms QRS Dur : 088 ms QT Int : 278 ms P-R-T Axes : 063 100 047 degrees QTc Int : 429 ms Sinus tachycardia Rightward axis Possible Anterior infarct , age undetermined Abnormal ECG No previous ECGs available Confirmed by Marv Mar ([id number]) on 01/27/2023 6:58:37 AM Referred By: Confirmed By:Marv Mar
[2023-01-27] MEDS: VANCOMYCIN HCL 1,500 MG in SODIUM CHLORIDE 0.9% 500 ML IV SCH (08:31)
--- NOTE | 2023-01-27 13:03 | Discharge Summary ---
Discharge Summary Date of Service January 27, 2023 Notes For Next Care Provider -Patient interested in Bariatric/Weight Loss Referral if available Medication Changes From Visit -Keflex 500mg QID for nonpurulent cellutlitis -Metformin 500mg daily for prediabetes Admission HPI Per Admitting Provider 32-year-old male with PMH obesity, SAMINA on CPAP, prediabetes, and other problems listed below who presents to the ED for evaluation of fever. Patient reports that around 9:00 this morning, he developed chills and rigors. Reports associated nausea and one episode of vomiting. Had a low-grade fever at that time. Later in the afternoon, fever went up to 105. No abdominal pain or diarrhea. Patient denies cough and sputum production. In the ED, patient was noted to have mild redness to the left lower extremity. Patient reports he was unaware that it was red. He denies chest pain and shortness of breath. No lightheadedness, dizziness, diaphoresis, syncopal events. Denies urinary symptoms. In the ED, patient was tachycardic in the 140s with low-grade temp. Labs show WBC 16 K, initial lactate 2.6, Mg +1.5. CXR shows possible right middle lobe pneumonia. Left femur CT shows Lymphadenopathy is seen in the left inguinal and visualized external iliac chain, no evidence of abscess. Patient was given IV cefepime, IV Vanco, magnesium replacement, IVF. Principal Dx & Hospital Course #1 = Principal Diagnosis (1) Severe sepsis: (2) Cellulitis: Blood cultures negative, LLE cellulitis improving with decreased erythema -Start Keflex for nonpurulent cellulitis -Start clomitazole 2/2 interdigital toe maceration to prevent potential site of entry -Recommended podiatry follow up (overgrown right great toe nail) (3) Prediabetes: Hgb A1c 6.1 03/2020, Encouraged life style modifications Start Metformin 500mg daily follow up with PCP (4) SAMINA on CPAP: CPAP as per home settings (5) Morbid obesity: Weight loss recommended for overall general improvement in health. Discharge Exam Constitutional WD/WN, vitals as above Respiratory normal respiratory effort, lungs clear to auscultation Gastrointestinal (Abdomen) normal bowel sounds, soft, nontender, no hepatosplenomegaly Skin -Decreased erythematous area on left lower extremity -Toes/feet examined, areas of interdigital maceration c/w tinea Updated Medication List Medication Instructions Recorded Confirmed Type chlorpheniramine 2 2 tab PO DIRECTED PRN Flu 01/25/23 01/25/23 History mg-phenylephrine 5 Symptoms mg-acetaminophen 325 mg tablet loratadine 10 mg tablet (Claritin) 10 mg PO DAILY PRN allergies 01/25/23 01/25/23 History naproxen sodium 220 mg tablet 220 mg PO BID PRN Fever Or Pain 01/25/23 01/25/23 History (Aleve) cephalexin 500 mg capsule 500 mg PO QID 7 days #28 caps 01/27/23 Rx clotrimazole 1 % topical cream 1 applic topical BID 4 weeks #45 01/27/23 Rx grams metformin 500 mg tablet 500 mg PO DAILY #30 tabs 01/27/23 Rx Hospital Stay Data Consultations 01/25/23 19:14 ED Decision to Admit Stat Diagnostic Imagining Performed 01/25/23 16:10 CT femur LT w con Stat Pending Results Patient Have Any Pending Studies at Discharge: No Discharge Instructions Given to Patient (Per Discharging Provider) You were admitted for sepsis (severe body reaction to infection) for cellulitis, or skin infection, of your left lower leg. You improved remarkably with IV antibiotics and it was noted that there was no sign of bacteria in your blood. With that, a course of oral antibiotics for 7 days should suffice. A prescription for the following was sent to your pharmacy: Keflex 500mg table, please take 1 tablet four times a day until prescription is completed (example, 1 with three meals and 1 at bedtime would be an appropriate schedule with roughly 4-5 hours between doses) If the pain persists or the area of redness progresses, please reach out to your PCP to discuss options/additional antibiotic recommendations. Given this is the second episode of something similar and you have concerns of athletes foot, a prescription for clotrimazole was sent. You will use this twice a day, preferably after cleaning and drying area, for 4 weeks. Please discuss podiatry follow up with your PCP. You were also noted to have pre-diabetes. We discussed multiple lifestyle mod ifications as well as the addition of metformin 500mg daily. This requires close follow up with your PCP to determine if dosing should be increased, if medication tolerated, as well as over all success of lifestyle modifications to prevent diabetes. Total Time Total Time Spent Total Time Spent (In Minutes): 45
[2023-01-29 11:41] LABS: Babesia microti DNA Not Detected (Not Detected)
--- NOTE | 2023-02-02 13:11 | Coding Query ---
To promote full compliance with coding requirements relating to patient care, provider participation is requested in all cases of data reporting analyst uncertainty. Please assist us with the question(s) below: Coding Question(s): The diagnosis below was documented in the 01/26 Progress Note, then subsequently fell off all further documentation. Please indicate if it is still a possible diagnosis or ruled out. Physician's Response(s): ASPIRATION PNEUMONIA ( ) Diagnosed and POA ( ) Diagnosed and not POA ( x ) Ruled out ( ) Other (please specify) MTDD
== END 2023-01-27 17:43 | disposition home or self-care (01) | DRG 872 ==
LOC: ED 14:17 → SUATTDRO 18:57 → EDINP 18:57 → 2W 21:05

== ENCOUNTER 2024-05-13 10:18 | Observation (INO) ==
[2024-05-13 11:18] LABS: Basophils # (auto) 0.03 K/uL (0.00-0.20); Basophils % (auto) 0.2 %; Hematocrit (blood only) 41.5 % (42.0-52.0); Hemoglobin 14.6 g/dl (14.0-18.0); Immature Granulocytes # (auto) 0.09 K/uL (0.01-0.20); Immature Granulocytes % (auto) 0.5 %; Lymphocytes # (auto) 0.84 K/uL (1.20-3.40); Lymphocytes % (auto) 4.9 %; Mean Corpuscular Hemoglobin 29.4 pg (25.0-34.0); Mean Corpuscular Hgb Conc 35.2 g/dL (32.0-36.0); Mean Corpuscular Volume 83.5 fL (80.0-100.0); Mean Platelet Volume 9.5 fL (9.4-12.4); Monocytes # (auto) 0.92 K/uL (0.11-0.59); Monocytes % (auto) 5.4 %; Neutrophils # (auto) 15.21 K/uL (1.40-6.50); Platelet Count 223 K/uL (130-400); RDW Coefficient of Variation 12.9 % (11.5-14.5); Red Blood Count 4.97 M/uL (4.70-6.10); White Blood Count 17.09 K/ul (4.8-10.8)
--- NOTE | 2024-05-13 11:33 | Emergency Department Note ---
Impression & Plan Cellulitis ADMIT ED Provider Note HPI: History obtained from patient. The patient is a 33-year-old male who presents the emergency department with a chief complaint of left anterior leg pain and concern for cellulitis. Patient states over the past week he has had some discomfort in the anterior part of his left leg just below the knee, he has noticed that it has become more erythematous over the past 5 days. Patient states he has a history of cellulitis and this appeared similar. Patient also states he has had some intermittent discomfort in his left medial thigh area, he has not noticed any erythema in this area. On arrival here to the ED the patient is tachycardic and febrile at 38.1, blood pressure is actually slightly hypertensive at 163/98 and oxygen is 95% on room air. ROS: - Per HPI Differential Diagnosis: Cellulitis, sepsis, necrotizing soft tissue infection, DVT, amongst other potential pathologies. *Outpatient medications and allergy history reviewed. PE: General: Alert, obese, no acute distress HEENT: Normocephalic, trachea midline Eyes: Extraocular eye movement is intact, no scleral erythema Pulmonary: Clear to auscultation bilaterally, no wheezing Cardio: Regular rate and rhythm GI: Abdomen is soft to palpation : No suprapubic tenderness MSK: No evidence of trauma or malformation of the extremities, no edema Skin: There is a large macular area of blanchable erythema to the anterior portion of the left lower extremity anteriorly below the knee and above the ankle consistent with cellulitis, there is no skin peeling or blister formation, there is no crepitus to palpation of the surrounding soft tissues Neuro: Alert, no focal deficits Psychiatric: Cooperative INDEPENDENT 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 Lab work shows a leukocytosis of 17.09, hemoglobin is normal, platelet count is normal, CMP does not show any evidence of any critical findings, procalcitonin is elevated at 1.84 consistent with likely bacterial infection/cellulitis given the patient's exam findings. He was febrile on arrival as well, he was given Tylenol, blood cultures were drawn. Patient was treated with IV vancomycin and IV cefepime for cellulitis. I do feel the patient is high risk for worsening of his infection, he is morbidly obese and he does not follow with a physician, I feel at this time given his vital signs and lab work he should be admitted for IV antibiotics. Patient was in agreement. Case was discussed with the admitting hospitalist service for [facility] and the patient was placed for admission in stable condition. Consultants/Discussions held with other healthcare providers: -Hospitalist, Dr. Blake Disposition discussion held by myself with: -Patient Diagnosis: 1. Left lower extremity cellulitis, acute 2. Fever, acute 3. Leukocytosis, acute 4. 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 Beliefs That Will Affect Care: None Current Living Situation: Alone Other Information That Helps Us Care for You: No Feels Safe at Home: Yes Safety Concerns: Feels Safe At This Time Assistive Devices: CPAP Assistive Devices Comment: CPAP device not with patient Allergies Allergies Allergy/AdvReac Type Severity Reaction Status Date / Time latex Allergy Mild Rash Unverified 05/13/24 13:53 Home Meds Home Medications Medication Instructions Recorded Confirmed loratadine 10 mg tablet (Claritin) 10 mg PO DAILY PRN allergies 01/25/23 05/13/24 naproxen sodium 220 mg tablet 220 mg PO BID PRN Fever Or Pain 01/25/23 05/13/24 (Aleve) Results & Data (ED) Vital Signs Vital Signs - 24 hr 05/13/24 10:25 05/13/24 10:55 05/13/24 11:47 Temperature 38.1 C H Temperature Source Oral Pulse Rate 113 H 111 H Pulse Rate [Apical] 101 H Pulse Rate from SpO2 Sensor Pulse Rhythm Regular Pulse Strength Normal Respiratory Rate 20 22 Respiratory Effort / Characteristics Non-Labored Respiratory Depth Normal Respiratory Pattern Regular Blood Pressure 163/98 H Blood Pressure [Right Arm] 133/79 Blood Pressure Mean 119 Blood Pressure Mean [Right Arm] 97 Pulse Oximetry 95 97 Oxygen Delivery Method Room Air Room Air Sepsis Recent Fever Within 48 Hours No Sepsis New/Unexplained Change in Mental Status No Sepsis Action Taken by Nursing No Action Required 05/13/24 11:47 05/13/24 11:47 05/13/24 13:41 Temperature Temperature Source Pulse Rate 104 H Pulse Rate [Apical] Pulse Rate from SpO2 Sensor Pulse Rhythm Pulse Strength Respiratory Rate 24 Respiratory Effort / Characteristics Respiratory Depth Respiratory Pattern Blood Pressure 163/101 H Blood Pressure [Right Arm] Blood Pressure Mean 109 Blood Pressure Mean [Right Arm] Pulse Oximetry 93 Oxygen Delivery Method Room Air Room Air Room Air Sepsis Recent Fever Within 48 Hours Sepsis New/Unexplained Change in Mental Status Sepsis Action Taken by Nursing 05/13/24 13:45 05/13/24 14:00 05/13/24 14:39 Temperature Temperature Source Pulse Rate 99 H 102 H 113 H Pulse Rate [Apical] Pulse Rate from SpO2 Sensor 100 H 102 H 113 H Pulse Rhythm Pulse Strength Respiratory Rate 23 23 21 Respiratory Effort / Characteristics Respiratory Depth Respiratory Pattern Blood Pressure Blood Pressure [Right Arm] Blood Pressure Mean Blood Pressure Mean [Right Arm] Pulse Oximetry 91 93 94 Oxygen Delivery Method Room Air Sepsis Recent Fever Within 48 Hours Sepsis New/Unexplained Change in Mental Status Sepsis Action Taken by Nursing 05/13/24 15:00 05/13/24 15:04 Temperature Temperature Source Pulse Rate Pulse Rate [Apical] 104 H Pulse Rate from SpO2 Sensor Pulse Rhythm Pulse Strength Respiratory Rate 19 Respiratory Effort / Characteristics Respiratory Depth Respiratory Pattern Blood Pressure Blood Pressure [Right Arm] 115/66 Blood Pressure Mean Blood Pressure Mean [Right Arm] 82 Pulse Oximetry 95 Oxygen Delivery Method Room Air Room Air Sepsis Recent Fever Within 48 Hours Sepsis New/Unexplained Change in Mental Status Sepsis Action Taken by Nursing Laboratory Data 05/13/24 10:55 05/13/24 10:55 Lab Results 05/13/24 05/13/24 Range/Units 10:55 11:43 WBC 17.09 H (4.8-10.8) K/ul RBC 4.97 (4.70-6.10) M/uL Hgb 14.6 (14.0-18.0) g/dl Hct 41.5 L (42.0-52.0) % MCV 83.5 (80.0-100.0) fL MCH 29.4 (25.0-34.0) pg MCHC 35.2 (32.0-36.0) g/dL RDW Std Deviation 39.0 (36.4-46.3) fL RDW Coeff of Nickolas 12.9 (11.5-14.5) % Plt Count 223 (130-400) K/uL MPV 9.5 (9.4-12.4) fL Immature Gran % (Auto) 0.5 % Neut % (Auto) 89.0 % Lymph % (Auto) 4.9 % [place] % (Auto) 5.4 % Eos % (Auto) 0.0 % Baso % (Auto) 0.2 % Neut # (Auto) 15.21 H (1.40-6.50) K/uL Lymph # (Auto) 0.84 L (1.20-3.40) K/uL [place] # (Auto) 0.92 H (0.11-0.59) K/uL Eos # (Auto) 0.00 (0.00-0.50) K/uL Baso # (Auto) 0.03 (0.00-0.20) K/uL Immature Gran # (Auto) 0.09 (0.01-0.20) K/uL PT 12.3 H (9.0-12.0) Seconds INR 1.1 (0.9-1.1) APTT 32 H (21-31) Seconds PTT Ratio 1.2 Sodium 136 (136-145) mmol/L Potassium 3.6 (3.5-5.1) mmol/L Chloride 102 (98-107) mmol/L Carbon Dioxide 27 (21-32) mmol/L Anion Gap 7 (3-11) BUN 14 (6-23) mg/dl Creatinine 0.96 (0.6-1.4) mg/dl Est Cr Clr Drug Dosing 162.0 ml/min eGFR 105.71 BUN/Creatinine Ratio 14.6 (10-20) Glucose 124 H (70-99(Fasting)) mg/dl Lactate 1.0 (0.4-2.0) mmol/L Calcium 9.4 (8.6-10.3) mg/dl Magnesium 1.8 (1.7-2.4) mg/dl Total Bilirubin 0.9 (0.2-1.0) mg/dl AST 12 L (13-39) U/L ALT 17 (7-52) U/L Alkaline Phosphatase 59 (34-104) U/L Troponin I High Sens 7.2 (0-20) pg/ml Total Protein 7.6 (6.0-8.3) gm/dl Albumin 4.6 (3.4-5.0) gm/dl Globulin 3.0 (2.5-4.0) gm/dl Albumin/Globulin Ratio 1.5 (0.9-2) Procalcitonin 1.84 H (0-0.5) ng/ml Administered Medications Enoxaparin Sodium (Enoxaparin Inj 40 Mg/0.4 Ml Syr) 40 mg SQ Q24H JOANN Stop: 06/12/24 15:30 Last Admin: 05/13/24 16:24 Dose: Not Given Documented By: TAE Sodium Chloride (Nss) 1,000 mls @ 125 mls/hr IV .Q8H JOANN Stop: 05/13/24 23:30 Last Admin: 05/13/24 16:23 Dose: 125 mls/hr Documented By: TAE Discontinued Medications Acetaminophen (Acetaminophen 500 Mg Tab) 1,000 mg PO NOW STA Stop: 05/13/24 13:42 Last Admin: 05/13/24 13:47 Dose: 1,000 mg Documented By: CHESTER Sodium Chloride (Nss) 1,000 mls @ 999 mls/hr IV .Q1H1M ONE Stop: 05/13/24 12:32 Last Infusion: 05/13/24 12:42 Dose: Infused Documented By: Admin: 05/13/24 11:41 Dose: 999 mls/hr Documented By: ESME Vancomycin HCl 2,750 mg/ (Sodium Chloride) 555 mls @ 200 mls/hr IV NOW ONE Stop: 05/13/24 14:48 Last Infusion: 05/13/24 16:08 Dose: Infused Documented By: Admin: 05/13/24 12:28 Dose: 200 mls/hr Documented By: CHESTER Cefepime HCl (Maxipime 2000mg) 2,000 mg in 20 mls @ 5 mls/min IV NOW STA; Protocol Stop: 05/13/24 12:05 Last Admin: 05/13/24 12:25 Dose: 5 mls/min Documented By: CHESTER Sodium Chloride (Nss) 1,000 mls @ 999 mls/hr IV .Q1H1M ONE Stop: 05/13/24 15:27 Last Infusion: 05/13/24 16:07 Dose: Infused Documented By: Admin: 05/13/24 14:42 Dose: 999 mls/hr Documented By: CHESTER Imaging Data Radiologist's Impression: Venous Doppler Study 05/13/24 11:31 LEFT 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 IMPRESSION: No DVT seen. . ACT 112: Negative or not required by law. Electronically signed by: Erik Bass M.D. 05/13/2024 1:30 PM Chest X-Ray 05/13/24 14:27 XR chest 1V portable CLINICAL HISTORY: r/o aspiration pneumonitis COMPARISON STUDY: 01/25/2023 FINDINGS: Heart size and pulmonary vasculature are normal. No effusion, consolidation, or pneumothorax. IMPRESSION: No acute findings. ACT 112: Negative or not required by law. Electronically signed by: Erik Bass M.D. 05/13/2024 3:42 PM Discharge Plan Visit Data Chief Complaint: Infection Stated Complaint: INFECTION LT LEG, CELLULITUS, HOT, VOMITED, CHILLS ED Provider: Colt Chua Discharge Problem: Cellulitis Patient Disposition: Admitted As Inpatient Discharge Instructions Interventions: ED Discharge Assessment Last Done: 05/13/24 15:04
[2024-05-13 11:34] LABS: Albumin Globulin Ratio 1.5 (0.9-2); Albumin Level 4.6 gm/dl (3.4-5.0); BUN Creatinine Ratio 14.6 (10-20); Bilirubin,Total 0.9 mg/dl (0.2-1.0); Calcium 9.4 mg/dl (8.6-10.3); Magnesium 1.8 mg/dl (1.7-2.4); Potassium 3.6 mmol/L (3.5-5.1); Total Protein 7.6 gm/dl (6.0-8.3)
[2024-05-13 11:39] LABS: Troponin I High Sensitivity 7.2 pg/ml (0-20)
[2024-05-13] MEDS: SODIUM CHLORIDE 0.9% 1,000 ML IV ONE ×2 (11:41→14:42)
[2024-05-13 11:43] LABS: INR 1.1 (0.9-1.1); Partial Thromboplastin Ratio 1.2; Partial Thromboplastin Time 32 Seconds (21-31); Prothrombin Time 12.3 Seconds (9.0-12.0)
[2024-05-13] MEDS ORDERED: VANCOMYCIN CONSULT ACTIVE PRN (12:02)
[2024-05-13] MEDS: CEFEPIME 2000MG 2,000 MG/20 ML SYR IV STA (12:25)
[2024-05-13] MEDS: VANCOMYCIN HCL 2,750 MG in SODIUM CHLORIDE 0.9% 500 ML IV ONE (12:28)
--- NOTE | 2024-05-13 13:32 | Ultrasound Report ---
LEFT 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 IMPRESSION: No DVT seen. . ACT 112: Negative or not required by law. Electronically signed by: Erik Bass M.D. 05/13/2024 1:30 PM
[2024-05-13] MEDS: ACETAMINOPHEN 500 MG TAB PO STA (13:47)
--- NOTE | 2024-05-13 13:57 | History & Physical Report ---
Date of Service May 13, 2024 Assessment & Plan (1) Cellulitis: Plan: Patient is 33 year old male with PMH prediabetes, morbid obesity, SAMINA presented to ER with c/o left lower leg redness and fever x 1 day. In ER T: 30 8.1C, P: 113, R: 20, BP: 163/98, 95% on room air WBC: 17, lactate WNL, procalcitonin: 1.8 Blood cultures pending Venous Doppler e: negative for DVT In ER given cefepime, vancomycin, 1L NSS, Tylenol Repeat vitals P: 104, R: 19, BP 115/66, 95% on room air Nonpurulent cellulitis on exam. Considered vancomycin, however pharmacy recommends daptomycin secondary to patient's BMI and anticipated difficulty maintaining therapeutic vancomycin levels CXR: no signs of infiltrate CBC, BMP in am (2) Prediabetes: Plan: History prediabetes Not following with PCP Last A1c in 01/26/23 was 6.1 Obtain A1c in am Diabetic diet (3) SAMINA on CPAP: Plan: Continue CPAP HS #Morbid Obesity BMI: 53 DVT Prophylaxis Lovenox SQ Admit med tele Full code Does not follow with PCP for routine care Pt was seen and care coordinated with Dr Patel. See addendum I spent a total of 60 minutes reviewing notes, outpatient records, labs, medication, coordinating, documenting and providing care for this patient excluding time spent in the performance of separately billed services and excluding time spent by another provider/QHP. History of Present Illness Chief Complaint: leg redness Primary Care Provider: NO PCP Patient is 33 year old male with PMH prediabetes, morbid obesity, SAMINA presented to ER with c/o left lower leg redness x 1 day. Patient states last week felt like having some discomfort to his left foot and he thought his shoe was rubbing area. He didn't notice any redness or open areas to foot or toes. States yesterday started having tactile fever and chills and he noticed redness to left lower stevens that is warm to touch and mildly tender. States vomited couple times last night and was coughing while vomiting. History hospitalization in 01/25/23- 01/27/23 for LE cellulitis. Denies diarrhea, constipation, dizziness, neck pain, CP, SOB, palpitations, sore throat, otalgia, rhinorrhea, abdominal pain, paresthesias, extremity weakness, extremity edema, other rashes, urinary symptoms. Allergies Allergy/AdvReac Type Severity Reaction Status Date / Time latex Allergy Mild Rash Unverified 05/13/24 13:53 Home Medications Medication Instructions Recorded Confirmed Type loratadine 10 mg tablet (Claritin) 10 mg PO DAILY PRN allergies 01/25/23 05/13/24 History naproxen sodium 220 mg tablet 220 mg PO BID PRN Fever Or Pain 01/25/23 05/13/24 History (Aleve) Past Med/Surg History Problem List Morbid obesity Cellulitis (Acute) Sepsis Prediabetes SAMINA on CPAP Obesity Medical History Electrolyte abnormality Hypomagnesemia Elevated lactic acid level Pneumonia Leukocytosis Tachycardia Sepsis Cellulitis Severe sepsis Surgical History History of dental surgery S/P left knee arthroscopy Social History Smoking Status: Never smoker Hx Alcohol Use: Yes Hx Substance Use: No Preferred Language: Arabic Communication Ability: Effective 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 Beliefs That Will Affect Care: None Current Living Situation: Alone Other Information That Helps Us Care for You: No Feels Safe at Home: Yes Safety Concerns: Feels Safe At This Time Assistive Devices: CPAP Assistive Devices Comment: CPAP device not with patient Review of Systems Review of Systems: All systems reviewed & are unremarkable except as noted in HPI & below Physical Exam Physical Exam: General: ill appearing, but non-toxic appearing, obese male Head: normocephalic, atraumatic Eyes: conjunctiva non-injected, anicteric ENT: normal inspection external ears, nose, mucous membranes mildly dry Neck: supple, trachea midline Lungs: clear, no respiratory distress, no wheezing/rhonchi/rales CV: tachycardic, rate 108, regular rhythm, no pretibial edema Abd: protuberant, normal BS, soft, non-tender Ext: no cyanosis, no calf tenderness; LLE: +erythema to anterior lower leg with warmth and mild tenderness to palpation, no drainage. foot with dry skin between toes without any noted erythema or ulcers Neuro: A&O x 3, no focal deficits noted, normal affect Skin: warm, dry Results & Data Results & Data Vital Signs (Past 12 Hours) Vital Signs Temp Pulse Pulse Resp BP BP Pulse Ox 05/13/24 13:41 104 H 24 163/101 H 93 05/13/24 11:47 05/13/24 11:47 05/13/24 11:47 101 H 22 133/79 97 05/13/24 10:55 111 H 05/13/24 10:25 38.1 C H 113 H 20 163/98 H 95 O2 Del Method 05/13/24 13:41 Room Air 05/13/24 11:47 Room Air 05/13/24 11:47 Room Air 05/13/24 11:47 Room Air 05/13/24 10:55 05/13/24 10:25 Room Air Laboratory Results Short CBC 05/13/24 Range/Units 10:55 WBC 17.09 H (4.8-10.8) K/ul Hgb 14.6 (14.0-18.0) g/dl Hct 41.5 L (42.0-52.0) % Plt Count 223 (130-400) K/uL BMP 05/13/24 10:55 Sodium 136 Potassium 3.6 Chloride 102 Carbon Dioxide 27 BUN 14 Creatinine 0.96 Glucose 124 H Calcium 9.4 Liver Function 05/13/24 Range/Units 10:55 Total Bilirubin 0.9 (0.2-1.0) mg/dl AST 12 L (13-39) U/L ALT 17 (7-52) U/L Alkaline Phosphatase 59 (34-104) U/L Albumin 4.6 (3.4-5.0) gm/dl Diagnostic Findings Venous Doppler Study 05/13/24 11:31 LEFT 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 IMPRESSION: No DVT seen. . ACT 112: Negative or not required by law. Electronically signed by: Erik Bass M.D. 05/13/2024 1:30 PM Chest X-Ray 05/13/24 14:27 XR chest 1V portable CLINICAL HISTORY: r/o aspiration pneumonitis COMPARISON STUDY: 01/25/2023 FINDINGS: Heart size and pulmonary vasculature are normal. No effusion, consolidation, or pneumothorax. IMPRESSION: No acute findings. ACT 112: Negative or not required by law. Electronically signed by: Erik Bass M.D. 05/13/2024 3:42 PM Supervising Physician Co-Signing Physician Notes Patient seen and examined independently. Discussed with the provider. Patient presents to the hospital with left lower extremity cellulitis and fever. He also had nausea and vomiting. On examination; has redness, swelling on left lower extremity. No open wounds present. Venous duplex is negative. Chest x-ray did not show any acute finding. Patient is started on daptomycin as pharmacy recommended due to patient's BMI. Monitor progression of cellulitis. Follow-up on blood culture I have reviewed the advanced practitioner's documentation, and I agree with, and take responsibility for the plan of care I spent a total of 30 minutes coordinating, documenting, and providing care for this patient excluding time spent in the performance of separately billed services. All of the aforementioned completed while collaborating with the assigned advanced practitioner for a full treatment plan (1) Cellulitis Laterality: left Site of cellulitis: extremity Site of cellulitis of extremity: lower extremity Qualified Code(s): L03.116 - Cellulitis of left lower limb
[2024-05-13] MEDS ORDERED: ONDANSETRON INJ 2 MG/ML 2 ML VIAL IV PRN (15:31)
[2024-05-13] MEDS ORDERED: POLYETHYLENE (MIRALAX) 17 GM PACK PO PRN (15:31)
--- NOTE | 2024-05-13 15:43 | XRay Report ---
XR chest 1V portable CLINICAL HISTORY: r/o aspiration pneumonitis COMPARISON STUDY: 01/25/2023 FINDINGS: Heart size and pulmonary vasculature are normal. No effusion, consolidation, or pneumothora x. IMPRESSION: No acute findings. ACT 112: Negative or not required by law. Electronically signed by: Erik Bass M.D. 05/13/2024 3:42 PM
[2024-05-13] MEDS: SODIUM CHLORIDE 0.9% 1,000 ML IV SCH (16:23)
[2024-05-13] MEDS: ENOXAPARIN INJ 40 MG/0.4 ML SYR SQ SCH (16:24)
--- OUTSIDE RECORDS SUMMARY | 2024-05-13 16:35 | External Medical Summary | Summary of Care ---
Author Name Unknown Organization [facility] Address [address] [place] [address] Phone [phone] Care Team Providers Care Cherry Sorter Name Role Phone Cece Lundy MD Primary Care Provider [phone] Reason for Visit * Reason Onset Date Comments Test Results 12/03/2023 Encounter Details Date Type Department Care Team (Late st Contact Info) Description 12/03/2023 Telephone General Internal Medicine [facility] [address] [place] [address] Cece Lundy MD [address] [place] [address] Test Results Allergies Active Allergy Reactions Criticality Noted Date Comments Latex Rash 02/24/2017 documented as of this encounter (statuses as of 12/04/2023) Medications Medication Sig Dispensed Refills Start Date End Date Status Loratadine 10 MG Oral Tablet (Claritin)Indicatio ns:Chronic frontal sinusitis 1 Tablet daily as needed for Rhinitis. 01/25/2023 Active Clotrimazole 1 % External Cream 2 times a day. 01/27/2023 Active metFORMIN HCl ER 500 MG Oral Tablet Extended Release 24 Hour (Glucophage XR)Indications:Pred iabetes Take 1 Tablet by mouth in the morning. 90 Tablet 3 01/30/2023 Active Additional Information Patient not taking.Reported on 05/08/2023 Furosemide 20 MG Oral Tablet (Lasix)Indications: Venous stasis dermatitis of both lower extremities Take 1 Tablet by mouth daily as needed for Other (edema). 05/08/2023 Active Potassium Chloride Monica ER 10 MEQ Oral Tablet Extended ReleaseIndications: Venous stasis dermatitis of both lower extremities Take 1 Tablet by mouth daily as needed for Other (increased swelling). Along with lasix 05/08/2023 Active documented as of this encounter (statuses as of 12/04/2023) Active Problems Problem Noted Date Diagnosed Date Obstructive sleep apnea 05/24/2020 Overview: Moderate BMI 50.0-59.9, adult 04/02/2020 Prediabetes 04/26/2018 Overview: Per Prediabetes protocol #1 Morbid obesity due to excess calories 02/24/2017 Seasonal allergies documented as of this encounter (statuses as of 12/04/2023) Resolved Problems Problem Noted Date Diagnosed Date Resolved Date Cellulitis 01/30/2023 01/30/2023 documented as of this encounter (statuses as of 12/04/2023) Immunizations Name Administration Dates Next Due COVID-19 mRNA, LNP-s, No Pre serve, 2-Dose Series (Moderna) 07/27/2020 Seasonal Influenza, PF, 6 M & above, IM , (FluLaval or Fluzone) 03/09/2018 TD, Preservative Free 04/02/2020 TDAP (age 10 and older)(Boostrix) 03/09/2010 documented as of this encounter Social History Tobacco Use Types Packs/Day Years Used Date Smoking Tobacco: Never Smokeless Tobacco: Former Snuff Comments:off and on Alcohol Use Standard Drinks/Week Comments Yes 0 (1 standard drink = 0.6 oz pur e alcohol) 2 drinks once a month PHQ-2 Answer Date Recorded PHQ-2 Score 1 05/29/2018 Hunger Vital Sign Answer Date Recorded Within the past 12 months, y ou worried that your food would run out before you got the money to buy more. Never true 04/02/20 20 Within the past 12 months, t he food you bought just didn't last and you didn't have money to get more. Never true 04/02/2020 Utilities Answer Date Recorded Do you have trouble paying y our heating, water, or electric bill? (Adult - for ages 18 years and over) Not on file 09/29/2023 Is your family able to pay t he heat, water, or electric bill? (Household - for ages 0-17 years) Not on file 09/29/2023 Does your family have access to good internet? (Household - for ages 0-17 years) Not on file 09/29/2023 Social Connections Answer Date Recorded How often do you feel lonely or isolated from those around you? (Adult - for ages 18 years and over) Not on file 09/29/2023 Sex and Gender Information Value Date Recorded Sex Assigned at Male 01/30/2023 10:07 AM EDT Gender Identity Male 01/30/2023 10:07 AM EDT Sexual Orientation Straight 01/30/2023 10 :07 AM EDT Job Start Date Occupation Industry Not on file Not on file Not on file documented as of this encounter Miscellaneous Notes * Telephone Encounter - Miriam Fisher OSA - 12/04/2023 10:37 AM EDT Pt called back and scheduled December 20 * Telephone Encounter - Miriam Fisher OSA - 12/04/2023 9:48 AM EDT Lmom to schedule * Telephone Encounter - Ruddy Sin OSA - 12/04/2023 9:42 AM EDT Scheduling denied please assist with scheduling an appointment * Telephone Encounter - Aliyah Carroll LPN - 12/03/2023 4:29 PM EDT Patient aware and verbalized understanding, will comply. Please assist in scheduling. * Telephone Encounter - Amy Jules, MED ASSIST - 12/03/2023 4:13 PM EDT Attempted to call patient, there was no answer, left voicemail. When patient returns call, ok for SAMINA to relay message, please refer to below documentation. If needed, can transfer to dedicated nurse line. * Telephone Encounter - Amy Jules MED ASSIST - 12/03/2023 4:13 PM EDT ----- Message from Tiffany Etienne MD sent at 12/03/2023 1:12 PM EDT ----- Urine microscopy -+red blood cells, culture is negative. CT abdomen and pelvis-no stones or any other abnormalities of tract -refer to Urology for evaluation documented in this encounter Plan of Treatment Upcoming Encounters Date Type Department Care Team (Late st Contact Info) Description 12/21/2023 9:15 AM EDT Office Visit Urology, [facility] [address] [facility] [place] [address] Yoseph Wilder MD [address] [place] [address] 12/31/2023 6:00 PM EDT Office Visit General Internal Medicine [facility] [address] [facility] [place] [address] Cece Lundy MD [address] [facility] [place] [address] Health Maintenance Due Date Last Done Comments Hepatitis B Vaccine (1 of 3 - 19+ 3-dose series) 09/07/2007 Depression Screening 05/25/2019 05/25/2018 COVID-19 Vaccine (2 - 2022-24 season) 2022 07/27/2020 Influenza Vaccine (FLU shot) (#1) 2023 03/09/2018 HbA1c 05/01/2024 05/01/2023, 1204/2019, 03/30/2019, Additional history exists DTaP,Tdap,and Td Vaccines (3 - Td or Tdap) 04/02/2030 04/02/2020, 03/09/2010 HPV (Gardasil) Vaccine Aged Out No lo nger eligible based on patient's age to complete this topic MENINGOCOCCAL (MENACTRA/MENVEO) Aged Out No longer eligible based on patient's age to complete this topic Pneumococcal Vaccine: Pediatrics (0 to 5 Years) and At-Risk Patients (6 to 64 Years) Aged Out No longer eligible based on patient's age to complete this topic documented as of this encounter Medical Devices Not on filedocumented as of this encounter Care Teams Cherry Sorter Relationship Specialty Start Date End Date Cece Lundy MD [address] [facility] [place] [address] PCP - General Internal Medicine 02/24/17 documented as of this encounter
--- OUTSIDE RECORDS SUMMARY | 2024-05-13 16:35 | External Medical Summary | Summary of Care ---
Author Name Unknown Organization [facility] Address [address] [place] [address] Phone [phone] Care Team Providers Care Cyber Security Administrator Name Role Phone Cece Lundy MD Primary Care Provider [phone] Reason for Visit * Reason Onset Date Comments Appointment 12/04/2023 Encounter Details Date Type Department Care Team (Late st Contact Info) Description 12/04/2023 Telephone General Internal Medicine [facility] [address] [facility] [place] [address] Cece Lundy MD [address] [place] [address] Appointment Allergies Active Allergy Reactions Criticality Noted Date [...] Fisher OSA - 12/04/2023 10:37 AM EDT Patient scheduled December 20 * Telephone Encounter - Janny Batista OSA - 12/04/2023 10:28 AM EDT Request Summary [[id number]] Procedure: ADULT/PEDS UROLOGY REFERRAL OP Status: Needs Scheduling ([id number] Pending) Requested appt date: Authorizing: Tiffany Etienne MD in [facility] POD3 Referral: [id number] (Authorized) Priority: Within 10 days (routine) Diagnosis: Gross hematuria [R31.0] BMI 50.0-59.9, adult ([facility]) [Z68.43] Comments CT neg, ur c/s neg Notes denied scheduling Order Specific Questions Referral Priority Within 10 days (routine) Where should this appointment be scheduled? [facility] What is the patient being referred for? Hematuria What is Hematuria condition? Gross Request History Action Date and Time User Details Request Created 12/03/2023 13:11 Tiffany Etienne MD Appointment Encounter, Details Notes Edited 12/04/2023 10:24 Janny Batista OSA Workqueue Summary Current Workqueues Entry Current Tab UROLOGY RFL ORDERS [4147] 12/03/2023 13:11 Active Details documented in this encounter Plan of Treatment Upcoming Encounters Date Type Department Care Team (Late st Contact Info) Description 12/21/2023 9:15 AM EDT Office Visit Urology, [facility] [place] [address] Yoseph Wilder MD [address] [place] [address] 12/31/2023 6:00 PM EDT Office Visit General Internal Medicine [facility] [place] [address] [place] [place] [address] Cece Lundy MD [address] [place] [address] [place] [address] Health Maintenance Due Date Last Done Comments Hepatitis B Vaccine (1 of 3 - 19+ 3-dose series) 09/07/2007 Depression Screening 05/25/2019 05/25/2018 COVID-19 Vaccine (2 - 2022-24 season) 2022 07/27/2020 Influenza Vaccine (FLU shot) (#1) 2023 03/09/2018 HbA1c 05/01/2024 05/01/2023, 03/14, 03/30/2019, Additional history exists DTaP,Tdap,and Td Vaccines [...] filedocumented as of this encounter Care Teams Cyber Security Administrator Relationship Specialty Start Date End Date Cece Lundy MD [address] [place] [place] [address] PCP - General Internal Medicine 02/24/17 documented as of this encounter
--- OUTSIDE RECORDS SUMMARY | 2024-05-13 16:35 | External Medical Summary | Summary of Care ---
Author Name Unknown Organization [facility] Address [address] [place] [address] Phone [phone] Care Team Providers Care Health Care Manager Name Role Phone Cece Lundy MD Primary Care Provider [phone] Reason for Referral * Evaluate & Treat - Unlimited Visits (Within 10 days (routine)) - Authorized Specialty Diagnoses / Procedures Referred By Contac t Referred To Contact Urology Diagnoses Gross hematuria BMI 50.0-59.9, adult (HCC) Tiffany Etienne MD [address] [place] [address] Referral ID Status Reason Start Date Expiration Date Visits Requested Visits Authorized [id number] Authorized Specialty Services Required 12/03/2023 999 999 Question Answer Referral Priority Within 10 days (routine) Where should this appointment be scheduled? [facility] What is the patient being referred for? Hematuria What is Hematuria condition? Gross Comments CT neg, ur c/s neg * Precert (Within 24 hrs (call dept; emergent)) - Authorized Specialty Diagnoses / Procedures Referred By Contac t Referred To Contact Radiology Diagnoses Hematuria BMI 50.0-59.9, adult ([facility]) Procedures CT ABD/PELVIS WO IV/ORAL CONTRAST CT ABD/PELVIS WO IV/ORAL CONTRAST Tiffany Etienne MD [address] [place] [address] Referral ID Status Reason Start Date Expiration Date V isits Requested Visits Authorized [id number] Authorized Precert 12/02/2023 05/30/2024 999 999 Reason for Visit * Reason Comments Hematuria Encounter Details Date Type Department Care Team (Late st Contact Info) Description 12/02/2023 11:20 AM EDT Office Visit General Internal Medicine [facility] [address] [place] [address] Tiffany Etienne MD 200 [facility] [place] [address] Gross hematuria*; BMI 50.0-59.9, adult (HCC) Allergies Active Allergy Reactions Criticality Noted Date Comments Latex Rash 02/24/2017 documented as of this encounter (statuses as of 12/03/2023) Medications Medication Sig Dispensed Refills Start Date [...] as of this encounter (statuses as of 12/03/2023) Active Problems Problem Noted Date Diagnosed Date Obstructive sleep apnea 05/24/2020 Overview: Moderate BMI 50.0-59.9, adult 04/02/2020 Prediabetes 04/26/2018 Overview: Per Prediabetes protocol #1 Morbid obesity due to excess calories 02/24/2017 Seasonal allergies documented as of this encounter (statuses as of 12/03/2023) Resolved Problems Problem Noted Date Diagnosed Date Resolved Date Cellulitis 01/30/2023 01/30/2023 documented as of this encounter (statuses as of 12/03/2023) Immunizations Name Administration Dates Next Due COVID-19 [...] on file documented as of this encounter Last Filed Vital Signs Vital Sign Reading Time Taken Comments Blood Pressure 124/76 12/02/2023 11:26 AM EDT Pulse - - Temperature 36.6 C (97.9 F) 12/02/2023 1 1:26 AM EDT Respiratory Rate 16 12/02/2023 11:2 6 AM EDT Oxygen Saturation 97% 12/02/2023 11: 26 AM EDT Inhaled Oxygen Concentration - - Weight 172.3 kg (379 lb 12.8 oz) 2023 11:26 AM EDT Height 174 cm (5' 8.5") 12/02/2023 11:2 6 AM EDT Body Mass Index 56.91 12/02/2023 11:26 AM EDT documented in this encounter Progress Notes * Tiffany Etienne MD - 12/02/2023 11:33 AM EDT SUBJECTIVE: Terernce Duncan is a 33 year old male. Chief Complaint Patient presents with Hematuria Nursing Notes: Arielle Sin, TESSA 12/02/23 1128 Signed Patient presents today for a blood in his urine today. He said that he is having burning when he pees and is having discomfort. HPI: Patient presents today for acute appointment with symptoms of noticing a bloody discharge withurination this morning around 830. Since then he has noticed against small amounts of blood when hepasses urine associated with mild discomfort. Denies any penile discharge. Has a monogamous relationship with his who is . Two weeks ago he had right-sided low back pain which has resolved but denies having any pain radiating to the abdomen or pelvic area currently with no pain no history of kidney stones. No history of similar symptoms in the past. No fever or chills. No nausea or vomiting. Patient Active Problem List Diagnosis Seasonal allergies Morbid obesity due to excess calories (HCC) Prediabetes BMI 50.0-59.9, adult (HCC) Obstructive sleep apnea Current Outpatient Medications Medication Sig Dispense Refill Loratadine 10 MG Oral Tablet (Claritin) 1 Tablet daily as needed for Rhinitis. (Patient not taking:Reported on 05/08/2023) Clotrimazole 1 % External Cream 2 times a day. (Patient not taking: Reported on 05/08/2023) metFORMIN HCl ER 500 MG Oral Tablet Extended Release 24 Hour (Glucophage XR) Take 1 Tablet by mouthin the morning. (Patient not taking: Reported on 05/08/2023) 90 Tablet 3 Furosemide 20 MG Oral Tablet (Lasix) Take 1 Tablet by mouth daily as needed for Other (edema). (Patient not taking: Reported on 12/02/2023) Potassium Chloride Monica ER 10 MEQ Oral Tablet Extended Release Take 1 Tablet by mouth daily as needed for Other (increased swelling). Along with lasix (Patient not taking: Reported on 12/02/2023) No current facility-administered medications for this visit. Review of patient's allergies indicates: Allergen Reactions Latex Rash OBJECTIVE: BP 124/76 | Temp 36.6 C (97.9 F) (Tympanic) | Resp 16 | Ht 1.74 m (5' 8.5") | Wt (!) 172.3 kg (379 lb 12.8 oz) | SpO2 97% | BMI 56.91 kg/m | BSA 2.89 m PHYSICAL EXAM: General: alert, healthy, no distress, Morbid obesity Oral cavity--Mm moist Heart: regular rate & rhythm, no gallops /murmurs. Lungs: lungs clear to auscultation Abdomen: abdomen soft, non-tender, normal bowel sounds. Back--no CVA tenderness Results for orders placed or performed in visit on 12/02/23 URINALYSIS, POINT OF CARE (ENTER/EDIT) Result Value Ref Range Color, Urine Yellow Yellow or Light Yellow Clarity, Urine Clear Clear Glucose, Urine Negative Negative mg/dL Bilirubin, Urine Negative Negative Ketone, Urine Negative Negative mg/dL Specific [place], Urine 1.015 1.003 - 1.030 Blood, Urine Moderate Negative pH, Urine 7.0 5.0 - 7.5 units Protein, Urine Negative Negative mg/dL Urobilinogen, Urine 0.2 0.2 - 1.0 mg/dL Nitrite, Urine Negative Negative Esterase, Urine Negative Negative ASSESSMENT/PLAN: Gross Hematuria (Primary) - URINALYSIS, POINT OF CARE (ENTER/EDIT) - MICROSCOPIC EXAM, URINE - CULTURE, URINE, QUANTITATIVE - CT ABD/PELVIS WO IV/ORAL CONTRAST; Future; Expected date: 12/02/2023 BMI 50.0-59.9, adult ([facility]) - MICROSCOPIC EXAM, URINE - CULTURE, URINE, QUANTITATIVE - CT ABD/PELVIS WO IV/ORAL CONTRAST; Future; Expected date: 12/02/2023 adv to drink water 8-12 cups daily, strain all urine, bring in any grit/stone if Passed for analysis. Await microscopy, if any shows any significant bacteria consider starting antibiotics. Schedule stat CT --urine microscopy 10-19 RBC, no significant bacteria WBC, await CT scan--is albert tomorrow Follow-up: Return if symptoms worsen or fail to improve. | Check-out note: [facility] STAT CT A/P, Albert reg fu PCP (This note was completed using the dictation program Fluency Direct. As such, there may be misspellings, word substitutions, or other variations that should not change the essence of the clinical content of this encounter note. If there is need for further clarification, please direct questions to the provider listed above.) Patient and / caregiver verbalize understanding of above instructions and agrees with plan of care. Tiffany Etienne MD 12/02/2023 documented in this encounter Nursing Notes * Arielle Sin LPN - 12/02/2023 11:25 AM EDT Patient presents today for a blood in his urine today. He said that he is having burning when he pees and is having discomfort. documented in this encounter Miscellaneous Notes * Addendum Note - Tiffany Etienne MD - 12/03/2023 1:12 PM EDTAddended by: TIFFANY ETIENNE on: 12/03/2023 01:12 PM Modules accepted: Orders * Result Encounter Note - Tiffany Etienne MD - 12/02/2023 1:12 PM EDT urine microscopy 10-19 Red blood cells , no significant bacteria WBC, await CT scan- documented in this encounter Plan of Treatment Upcoming Encounters Date Type Department Care Team (Late st Contact Info) Description 12/31/2023 6:00 PM EDT Office Visit General Internal Medicine [facility] [address] [facility] [place] [address] Cece Lundy MD [address] [facility] [place] [address] Scheduled Referrals Name Type Priority Associated Diagnoses Orde r Schedule ADULT/PEDS UROLOGY REFERRAL OP Referral Within 10 days (routine) Gross hematuria BMI 50.0-59.9, adult (HCC) Ordered: 12/03/2023 Health Maintenance Due Date Last Done Comments Hepatitis B Vaccine (1 of 3 - 19+ 3-dose series) 09/07/2007 Depression Screening 05/25/2019 05/25/2018 COVID-19 Vaccine (2022- season) 2022 07/27/2020 Influenza Vaccine (FLU shot) (#1) 2023 03/09/2018 HbA1c 05/01/2024 05/01/2023, 12/04/2019, 03/30/2019, Additional history exists DTaP,Tdap,and Td Vaccines [...] Not on filedocumented as of this encounter Procedures Procedure Name Priority Date/Time Associated Diagnosis Comments CULTURE, URINE, QUANTITATIVE Routine 12/02/2023 11:59 AM EDT Gross hematuria BMI 50.0-59.9, adult (HCC) MICROSCOPIC EXAM, URINE STAT 12/02/2023 11:59 AM EDT Gross hematuria BMI 50.0-59.9, adult (HCC) URINALYSIS, POINT OF CARE (ENTER/EDIT) Routine 12/02/2023 Gross hematuria documented in this encounter Results * CT ABD/PELVIS WO IV/ORAL CONTRAST (12/03/2023 7:05 AM EDT) Anatomical Region Laterality Modality Body, Abdomen, Pelvis Computed T omography 12/03/2023 7:19 AM EDT Narrative 12/03/2023 7:17 AM EDT EXAM: CT ABDOMEN AND PELVIS WITHOUT CONTRAST HISTORY: ac hematuria COMPARISON: None. TECHNIQUE: CT abdomen and pelvis without contrast was performed. FINDINGS: Evaluation is limited without intravenous contrast. LOWER CHEST: Clear lung bases. LIVER: Unremarkable. GALLBLADDER/BILE DUCTS: Unremarkable. PANCREAS: Unremarkable. GI TRACT: The bowel is not abnormally dilated to suggest obstruction. Appendix is visualized and appears within normal limits. There is colonic diverticulosis without evidence of diverticulitis. SPLEEN: Unremarkable. LYMPH NODES: No lymphadenopathy. ADRENAL GLANDS: Unremarkable. KIDNEYS/URETERS: No evidence of right-sided urolithiasis, hydronephrosis, hydroureter, or perinephric stranding. No evidence of left-sided urolithiasis, hydronephrosis, hydroureter, or perinephric stranding. URINARY BLADDER: Unremarkable. REPRODUCTIVE ORGANS: Grossly unremarkable. VASCULATURE: No aortic aneurysm. MISCELLANEOUS: No free fluid or free air. MUSCULOSKELETAL: There chronic and degenerative changes in the spine. IMPRESSION: 1. No evidence of urolithiasis, hydronephrosis, hydroureter, or perinephric stranding. 2. No evidence of acute pathology in the abdomen and pelvis. Procedure Note Luis Faustin MD - 12/03/2023 EXAM: CT ABDOMEN AND PELVIS WITHOUT CONTRAST HISTORY: ac hematuria COMPARISON: None. TECHNIQUE: CT abdomen and pelvis without contrast was performed. FINDINGS: Evaluation is limited without intravenous contrast. LOWER CHEST: Clear lung bases. LIVER: Unremarkable. GALLBLADDER/BILE DUCTS: Unremarkable. PANCREAS: Unremarkable. GI TRACT: The bowel is not abnormally dilated to suggest obstruction.Appendix is visualized and appears within normal limits. There is colonicdiverticulosis without evidence of diverticulitis. SPLEEN: Unremarkable. LYMPH NODES: No lymphadenopathy. ADRENAL GLANDS: Unremarkable. KIDNEYS/URETERS: No evidence of right-sided urolithiasis, hydronephrosis,hydroureter, or perinephric stranding. No evidence of left-sided urolithiasis, hydronephrosis, hydroureter, orperinephric stranding. URINARY BLADDER: Unremarkable. REPRODUCTIVE ORGANS: Grossly unremarkable. VASCULATURE: No aortic aneurysm. MISCELLANEOUS: No free fluid or free air. MUSCULOSKELETAL: There chronic and degenerative changes in the spine. IMPRESSION: 1. No evidence of urolithiasis, hydronephrosis, hydroureter, orperinephric stranding. 2. No evidence of acute pathology in the abdomen and pelvis. Tiffany Etienne MD RAD CT * CULTURE, URINE, QUANTITATIVE (12/02/2023 11:59 AM EDT) Pathologist [facility] Culture Growth No significant growth 12/03/2023 1:06 PM EDT [facility] Urine Urine specimen obtained by clean catch procedure / Unknown Non-blood Collection / Unknown 12/02/2023 11:59 AM EDT 12/02/2023 12:09 PM EDT Tiffany Etienne MD LAB MICRO - GENERAL ORDERABLES [facility]ATORY [facility] [address] [place] [address] * (ABNORMAL) MICROSCOPIC EXAM, URINE (12/02/2023 11:59 AM EDT) RBC, Urine 10-19(A) 0 - 2 /HPF 12/02/2023 12:33 PM EDT [facility] 56-02 WBC, Urine 0-2 0 - 2 /HPF 12/02/2023 12:33 PM EDT [facility] 56-02 Bacteria, Urine 0-25 0 - 25 /HPF 12/02/2023 12:33 PM EDT [facility] 56-02 Urine Urine specimen obtained by clean catch procedure / Unknown Non-blood Collection / Unknown 12/02/2023 11:59 AM EDT 12/02/2023 12:10 PM EDT Tiffany Etienne MD LAB URINE ORDERABLES [facility] 56[facility] [facility] [id number] * URINALYSIS, POINT OF CARE (ENTER/EDIT) (12/02/2023) Color, Urine Yellow Yellow or Light Yellow Clarity, Urine Clear Clear Glucose, Urine Negative Negative mg/dL Bilirubin, Urine Negative Negative Ketone, Urine Negative Negative mg/dL Specific [place], Urine 1.015 1.003 - 1.030 Blood, Urine Moderate Negative pH, Urine 7.0 5.0 - 7.5 units Protein, Urine Negative Negative mg/dL Urobilinogen, Urine 0.2 0.2 - 1.0 mg/dL Nitrite, Urine Negative Negative Esterase, Urine Negative Negative Urine 12/02/2023 Tiffany Etienne MD LAB POINT OF CARE TE ST ENTER/EDIT ORDERABLES documented in this encounter Visit Diagnoses Diagnosis Gross hematuria- Primary BMI 50.0-59.9, adult (HCC) Body Mass Index 50.0-59.9, adult Gross hematuria BMI 50.0-59.9, adult (HCC) Body Mass Index 50.0-59.9, adult documented in this encounter Care Teams Health Care Manager Relationship Specialty Start Date End Date [facility] [address] [facility] [address] PCP - General Internal Medicine 02/24/17 documented as of this encounter
--- OUTSIDE RECORDS SUMMARY | 2024-05-13 16:35 | External Medical Summary | Summary of Care ---
Author Name Unknown Organization [facility] Address [address] [place] [address] Phone [phone] Care Team Providers Care Road Crossing Guard Name Role Phone Cece Lundy MD Primary Care Provider [phone] Reason for Visit * Reason Onset Date Comments Appointment 12/04/2023 Encounter Details Date Type Department Care Team (Late st Contact Info) Description 12/04/2023 Telephone General Internal Medicine [facility] [address] [facility] [place] [address] Cece Lundy MD [address] [place] [address] Appointment Allergies Active Allergy Reactions Criticality Noted [...] - 12/04/2023 10:28 AM EDT Request Summary [[id number]] Procedure: ADULT/PEDS UROLOGY REFERRAL OP Status: Needs Scheduling ([id number] Pending) Requested appt date: Authorizing: Tiffany Etienne MD in [facility] POD3 Referral: [id number] (Authorized) Priority: Within 10 days (routine) Diagnosis: Gross hematuria [R31.0] BMI 50.0-59.9, adult ([facility]) [Z68.43] Comments CT neg, ur [...] 12/21/2023 9:15 AM EDT Office [facility], [facility] [place] [address] Yoseph Wilder MD [address] [address] 12/31/2023 6:00 PM EDT Office Visit General Internal Medicine [facility] [place] [address] [place] [address] Cece Lundy MD [address] [place] [address] Health Maintenance Due Date Last Done Comments [...] filedocumented as of this encounter Care Teams Road Crossing Guard Relationship Specialty Start Date End Date Cece Lundy MD [address] [place] [address] [id number] PCP - General Internal Medicine 02/24/17 documented as of this encounter
--- OUTSIDE RECORDS SUMMARY | 2024-05-13 16:36 | External Medical Summary ---
Author Name Unknown Address Unknown Organization [id number]:[facility] [place] [address] [place] [address] Laboratory Report Ordering Provider Test Date Status SONUSATURNINO 12/02/2023 11:59:10 Final Observation Date Value Abnormality Reference (Units) Status Bacteria identified in Specimen by Culture 12/02/2023 11:59:10 No significant growth Final Test: Culture, Urine, Quanti tative
Specimen Source: Urine, Clean Catch
Specimen Type: Urine
Specimen Date: 12/02/2023 1159
Result Date: 12/03/2023 1306
Result Status: Final result
Resulting Lab: [facility]
[address]
[facility] [address]

CULTURE

No significant growth

null Performing Location [facility] - [address] [facility] [address]
--- OUTSIDE RECORDS SUMMARY | 2024-05-13 16:36 | External Medical Summary | Summary of Care ---
Author Name Unknown Organization [facility] Address [address] [place] [address] Phone [phone] Care Team Providers Care Maintenance Director Name Role Phone Cece Lundy MD Primary Care Provider [phone] Reason for Referral * Precert (Within 24 hrs (call dept; emergent)) - Authorized Specialty Diagnoses / Procedures Referred By Contac t Referred To Contact Radiology Diagnoses Hematuria BMI 50.0-59.9, adult (HCC) Procedures CT ABD/PELVIS WO IV/ORAL CONTRAST CT ABD/PELVIS WO IV/ORAL CONTRAST Tiffany Etienne MD [address] [facility] [place] [address] Referral ID Status Reason Start Date Expiration Date V isits Requested Visits Authorized [id number] Authorized Precert 12/02/2023 05/30/[phone] Reason for Visit * Reason Comments Hematuria Encounter Details Date Type Department Care Team (Late st Contact Info) Description 12/02/2023 11:20 AM EDT Office Visit General Internal Medicine [facility] [address] [place] [address] [place] [address] Tiffany Etienne MD [address] [place] [address] Gross hematuria*; BMI 50.0-59.9, adult (HCC) Allergies Active Allergy Reactions Criticality Noted Date Comments Latex Rash 02/24/2017 documented as of this encounter (statuses as of 12/02/2023) Medications Medication Sig Dispensed Refills Start Date [...] as of this encounter (statuses as of 12/02/2023) Active Problems Problem Noted Date Diagnosed Date Obstructive sleep apnea 05/24/2020 Overview: Moderate BMI 50.0-59.9, adult 04/02/2020 Prediabetes 04/26/2018 Overview: Per Prediabetes protocol #1 Morbid obesity due to excess calories 02/24/2017 Seasonal allergies documented as of this encounter (statuses as of 12/02/2023) Resolved Problems Problem Noted Date Diagnosed Date Resolved Date Cellulitis 01/30/2023 01/30/2023 documented as of this encounter (statuses as of 12/02/2023) Immunizations Name Administration Dates Next Due COVID-19 [...] MD - 12/02/2023 11:33 AM EDT SUBJECTIVE: Terrence Duncan is a 33 year old male. [...] excess calories (HCC) Prediabetes BMI 50.0-59.9, adult ([facility]) Obstructive sleep apnea Current Outpatient Medications Medication [...] Negative Ketone, Urine Negative Negative mg/dL Specific [place], Urine 1.015 1.003 - 1.030 Blood, Urine [...] Future; Expected date: 12/02/2023 BMI 50.0-59.9, adult (HCC) - MICROSCOPIC EXAM, URINE - CULTURE, URINE, [...] or fail to improve. | Check-out note: Albert STAT CT A/P, Albert reg fu PCP [...] documented in this encounter Miscellaneous Notes * Result Encounter Note - Tiffany Etienne MD - 12/02/2023 1:12 PM EDT urine microscopy 10-19 Red blood cells , no significant bacteria WBC, await CT scan- documented in this encounter Plan of Treatment Upcoming Encounters Date Type Department Care Team (Late st Contact Info) Description 12/03/2023 7:00 AM EDT Imaging Radiology [facility] [address] [place] [address] 12/31/2023 6:00 PM EDT Office Visit General Internal Medicine [facility] [address] [facility] [place] [address] Cece Lundy MD [address] [facility] [place] [address] Pending Results Name Type Priority Associated Diagnoses Date /Time CULTURE, URINE, QUANTITATIVE Lab Routine Gross hematuria BMI 50.0-59.9, adult ([facility]) 12/02/2023 11:59 AM EDT Scheduled Orders Name Type Priority Associated Diagnoses Orde r Schedule CT ABD/PELVIS WO IV/ORAL CONTRAST Medical Imaging STAT Gross hematuria BMI 50.0-59.9, adult ([facility]) Expected: 12/02/2023, Expires: 01/01/2025 Health Maintenance Due Date Last Done Comments Hepatitis B Vaccine (1 of 3 - 19+ 3-dose series) 09/07/2007 Depression Screening 05/25/2019 05/25/2018 COVID-19 Vaccine (2 - 2022- season) 2022 07/27/2020 Influenza Vaccine (FLU shot) [...] Procedure Name Priority Date/Time Associated Diagnosis Comments MICROSCOPIC EXAM, URINE STAT 12/02/2023 11:59 AM EDT Gross hematuria BMI 50.0-59.9, adult (HCC) URINALYSIS, POINT OF CARE (ENTER/EDIT) Routine 12/02/2023 Gross hematuria documented in this encounter Results * (ABNORMAL) MICROSCOPIC EXAM, URINE (12/02/2023 11:59 AM EDT) RBC, Urine 10-19(A) 0 - 2 /HPF 12/02/2023 12:33 PM EDT [facility]02 WBC, Urine 0-2 0 - 2 /HPF 12/02/2023 12:33 PM EDT [facility]02 Bacteria, Urine 0-25 0 - 25 /HPF 12/02/2023 12:33 PM EDT [facility] [place] 56-02 Urine Urine specimen obtained by clean catch procedure / Unknown Non-blood Collection / Unknown 12/02/2023 11:59 AM EDT 12/02/2023 12:10 PM EDT Tiffany Etienne MD LAB URINE ORDERABLES [facility] 56-02 [address] [place] [address] * URINALYSIS, POINT OF CARE (ENTER/EDIT) (12/02/2023) Color, Urine Yellow Yellow or Light Yellow Clarity, Urine Clear Clear Glucose, Urine Negative Negative mg/dL Bilirubin, Urine Negative Negative Ketone, Urine Negative Negative mg/dL Specific [place], Urine 1.015 1.003 - 1.030 Blood, Urine [...] adult documented in this encounter Care Teams Maintenance Director Relationship Specialty Start Date End Date [facility] [address] [facility] [address] PCP - General Internal Medicine 02/24/17 documented as of this encounter
--- OUTSIDE RECORDS SUMMARY | 2024-05-13 16:36 | External Medical Summary ---
Author Name Unknown Address Unknown Organization K09:[facility] [address] [place] [address] Laboratory Report Ordering Provider Test Date Status SATURNINO ASCENCIO 12/02/2023 11:59:10 Final Observation Date Value Abnormality Reference (Units ) Status RBC, Urine 12/02/2023 11:59:10 10-19 Abnormal 0-2 (/HPF) Final WBC, Urine 12/02/2023 11:59:10 0-2 0-2 (/HPF) Final Bacteria [#/area] in Urine sediment by Microscopy high power field 12/02/2023 11:59:10 0-25 0-25 (/HPF) Final Performing Location [facility] [address] [place] [address]
[2024-05-13] MEDS: DAPTOmycin 650 MG in SYRINGE 0 ML IV SCH (21:34)
[2024-05-13] MEDS: ACETAMINOPHEN 325 MG TAB PO PRN (21:34)
[2024-05-13] MEDS: SODIUM CHLORIDE 0.9% 500 ML IV ONE (21:35)
[2024-05-14 05:58] LABS: Basophils # (auto) 0.02 K/uL (0.00-0.20); Basophils % (auto) 0.3 %; Eosinophils # (auto) 0.05 K/uL (0.00-0.50); Eosinophils % (auto) 0.7 %; Hematocrit (blood only) 37.3 % (42.0-52.0); Hemoglobin 12.6 g/dl (14.0-18.0); Immature Granulocytes # (auto) 0.02 K/uL (0.01-0.20); Immature Granulocytes % (auto) 0.3 %; Lymphocytes % (auto) 20.1 %; Mean Corpuscular Hgb Conc 33.8 g/dL (32.0-36.0); Mean Corpuscular Volume 85.7 fL (80.0-100.0); Mean Platelet Volume 9.3 fL (9.4-12.4); Monocytes # (auto) 0.79 K/uL (0.11-0.59); Monocytes % (auto) 11.4 %; Neutrophils # (auto) 4.67 K/uL (1.40-6.50); Neutrophils % (auto) 67.2 %; Platelet Count 151 K/uL (130-400); RDW Coefficient of Variation 13.2 % (11.5-14.5); Red Blood Count 4.35 M/uL (4.70-6.10); White Blood Count 6.95 K/ul (4.8-10.8)
[2024-05-14 06:03] LABS: BUN Creatinine Ratio 14.4 (10-20); Calcium 8.5 mg/dl (8.6-10.3); Creatinine Clr Calc Pharmacy 174.5 ml/min; Potassium 3.8 mmol/L (3.5-5.1)
--- NOTE | 2024-05-14 09:28 | Hospitalist Progress Note ---
<Statement entered by Reg Flores, DO - 05/14/24 12:16> I have seen and examined the patient and have discussed the case with the advance practice provider. I have reviewed the advanced practitioner's documentation, and I agree with, and take responsibility for that plan of care. Patient's lower extremity redness significantly improved. Appears that we have some chronic edema. Would benefit from chronic compression therapy. Patient reports that he does wear compression stockings at work. Continue current antibiotics Monitor blood cultures Further plan of care as outlined below I spent a total of 18 minutes coordinating, documenting, and providing care for this patient excluding time spent by another provider/QHP. Date of Service May 14, 2024 Assessment & Plan (1) Sepsis: (2) Cellulitis: Plan: Patient is 33 year old male with PMH prediabetes, morbid obesity, SAMINA presented to ER with c/o left lower leg redness and fever x 1 day. He met Sepsis criteria on admission with Fever, Leukocytosis and Tachycardia Source: LLE Cellulitis Blood Cultures Obtained and pending He received IV Vanco/Cefepime in ED Venous Doppler: negative for DVT Continue Daptomycin (Dapto chosen over Vanco due to pts weight) Sepsis has resolved, he is no longer febrile or tachycardic Will transition to med/surg Have nursing dedrick with skin marker for close monitoring likely be able to transition to oral antibiotics in the coming days (3) Prediabetes: Plan: History prediabetes Not following with PCP Last A1c in 01/26/23 was 6.1 A1C currently pending (4) SAMINA on CPAP: Plan: Continue CPAP HS #Morbid Obesity BMI: 53, encourage diet/lifetyle modifications DVT Prophylaxis Lovenox SQ Dispo: to remain hospitalized for IV antibiotics, suspect can transition to oral in 1-2 days, will downgrade to medical Pt will need to establish with PCP as outpt I spent a total of 52 minutes coordinating, documenting and providing care for this patient excluding time spent in the performance of separately billed services or time spent by another provider/QHP. Admission and Anticipated Discharge Date Admission Date: May 13, 2024 Subjective F/U Cellulitis. He feels his sx are about the same. He is unsure if redness if improved or not. He reports not feeling much better. He still feels chilled/hot, minimal pain to LLE. He denies chest pain, sob, n/v/d. Overall has a decreased appetite. Review of Systems Review of Systems: All systems reviewed & are unremarkable except as noted in HPI & below Physical Exam Physical Exam: Gen: WD/WN, NAD, A&O x3 HEENT: Normocephalic, atraumatic, conjunctivae moist, sclerae anicteric, mucous membranes moist. Lung: Clear to Auscultation bilaterally, no wheezes/rales/rhonchi Heart: Regular rate, regular rhythm, no murmurs, rubs, or gallops Abdomen: Soft, NT, ND +BS x 4 Extremities: No edema, trace venous stasis change b/l, LLE erythema/warmth distal 1/3 of pretibial area Skin: Warm, no rash, negative turgor. Results & Data Results & Data Vital Signs (Past 12 Hours) Vital Signs Temp Pulse Pulse Resp BP BP Pulse Ox 05/14/24 07:54 37 C 80 18 113/75 97 05/14/24 05:58 77 05/14/24 04:00 36.7 C 81 18 114/64 97 05/14/24 02:32 64 21 92 05/14/24 01:01 87 24 94 05/13/24 23:21 37.6 C H 102 H 18 128/79 96 05/13/24 21:57 101 H O2 Del Method 05/14/24 07:54 Room Air 05/14/24 05:58 05/14/24 04:00 Room Air 05/14/24 02:32 05/14/24 01:01 05/13/24 23:21 Room Air 05/13/24 21:57 Laboratory Results I have independently reviewed and interpreted patient's CBC, BMP Medications Administered Current Inpatient Medications Acetaminophen (Acetaminophen 325 Mg Tab) 650 mg PO Q4H PRN PRN Reason: Pain or Fever Stop: 06/12/24 15:30 Last Admin: 05/13/24 21:34 Dose: 650 mg Enoxaparin Sodium (Enoxaparin Inj 40 Mg/0.4 Ml Syr) 40 mg SQ Q24H JOANN Stop: 06/12/24 15:30 Last Admin: 05/13/24 16:24 Dose: Not Given Daptomycin 650 mg/ Syringe 13 mls @ 6.5 mls/min IV Q24H JOANN; Protocol Stop: 05/20/24 21:59 Last Admin: 05/13/24 21:34 Dose: 6.5 mls/min Ondansetron HCl (Ondansetron Inj 2 Mg/Ml 2 Ml Vial) 4 mg IV Q6H PRN PRN Reason: Nausea Stop: 06/12/24 15:30 Polyethylene Glycol (Polyethylene (Miralax) 17 Gm Pack) 17 gm PO DAILY PRN PRN Reason: Constipation Stop: 06/12/24 15:30 (2) Cellulitis Laterality: left Site of cellulitis: extremity Site of cellulitis of extremity: lower extremity Qualified Code(s): L03.116 - Cellulitis of left lower limb
[2024-05-15 07:51] VITALS: RESP 18; TEMP 97.9; O2SAT 99
--- NOTE | 2024-05-15 09:22 | Discharge Summary ---
<Statement entered by Reg Flores, - 05/15/24 11:37> I have seen and examined the patient and have discussed the case with the advance practice provider. I have reviewed the advanced practitioner's documentation, and I agree with, and take responsibility for that plan of care. Left lower extremity redness significantly improved, warmth is improved. Redness has receded from the marked ankle lines. Tenderness is significantly improved. Agree with transition to oral antibiotics and discharged home. Discharge plans as outlined below I spent a total of 17 minutes coordinating, documenting, and providing care for this patient excluding time spent by another provider/QHP. Discharge Summary Date of Service May 15, 2024 Principal Dx & Hospital Course #1 = Principal Diagnosis (1) Sepsis: (2) Cellulitis: Patient is 33 year old male with PMH prediabetes, morbid obesity, SAMINA presented to ER with c/o left lower leg redness and fever x 1 day. He met Sepsis criteria on admission with Fever, Leukocytosis and Tachycardia 2/2 LLE Cellulitis. Blood Cultures Obtained and NGTD. He received IV Vanco/Cefepime in ED. Venous Doppler: negative for DVT. He was treated with IV Dapto on day #2 and he will receive a dose of IV rocephin prior to discharge to cover for today. I Will discharge on course of Augmentin for additional 7 days. His sepsis has since resolved and on day of discharge he is hemodynamically stable. We talked about his former dx of pre diabetes. He is motivated for lifestyle change with diet/exercise. His A1C from admission is currently still pending due to the lab machine being broke down. He will need to follow up with this result upon discharge. On day of discharge his LLE redness has receded significantly. We talked about using compression stockings when he is going to be on his feet for long periods of time. (3) Prediabetes: (4) SAMINA on CPAP: Notes For Next Care Provider Follow up on pending A1C. Medication Changes From Visit Augmentin 875mg one tablet by mouth twice daily for 7 days. Next dose due on 05/16/24 in the a.m. Florastor 250mg by mouth once daily for 7 days. This is a probiotic. Admission HPI Per Admitting Provider Patient is 33 year old male with PMH prediabetes, morbid obesity, SAMINA presented to ER with c/o left lower leg redness x 1 day. Patient states last week felt like having some discomfort to his left foot and he thought his shoe was rubbing area. He didn't notice any redness or open areas to foot or toes. States yesterday started having tactile fever and chills and he noticed redness to left lower stevens that is warm to touch and mildly tender. States vomited couple times last night and was coughing while vomiting. History hospitalization in 01/25/23- 01/27/23 for LE cellulitis. Denies diarrhea, constipation, dizziness, neck pain, CP, SOB, palpitations, sore throat, otalgia, rhinorrhea, abdominal pain, paresthesias, extremity weakness, extremity edema, other rashes, urinary symptoms. Admission Exam Per Admitting Provider General: ill appearing, but non-toxic appearing, obese male Head: normocephalic, atraumatic Eyes: conjunctiva non-injected, anicteric ENT: normal inspection external ears, nose, mucous membranes mildly dry Neck: supple, trachea midline Lungs: clear, no respiratory distress, no wheezing/rhonchi/rales CV: tachycardic, rate 108, regular rhythm, no pretibial edema Abd: protuberant, normal BS, soft, non-tender Ext: no cyanosis, no calf tenderness; LLE: +erythema to anterior lower leg with warmth and mild tenderness to palpation, no drainage. foot with dry skin between toes without any noted erythema or ulcers Neuro: A&O x 3, no focal deficits noted, normal affect Skin: warm, dry Discharge Exam Gen: WD/WN, NAD, A&O x3 HEENT: Normocephalic, atraumatic, conjunctivae moist, sclerae anicteric, mucous membranes moist. Lung: Clear to Auscultation bilaterally, no wheezes/rales/rhonchi Heart: Regular rate, regular rhythm, no murmurs, rubs, or gallops Abdomen: Soft, NT, ND +BS x 4 Extremities: No edema, trace venous stasis change b/l, LLE erythema/warmth distal 1/3 of pretibial area significantly improved Skin: Warm, no rash, negative turgor. Updated Medication List Medication Instructions Recorded Confirmed Type loratadine 10 mg tablet (Claritin) 10 mg PO DAILY PRN allergies 01/25/23 05/13/24 History naproxen sodium 220 mg tablet 220 mg PO BID PRN Fever Or Pain 01/25/23 05/13/24 History (Aleve) Saccharomyces boulardii 250 mg 250 mg PO DAILY #7 caps 05/15/24 Rx capsule (Florastor) amoxicillin 875 mg-potassium 1 tab PO Q12H 7 days #14 tabs 05/15/24 Rx clavulanate 125 mg tablet Hospital Stay Data Consultations 05/13/24 14:02 ED Decision to Admit Stat Diagnostic Imagining Performed Venous Doppler Study 05/13/24 11:31 LEFT 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 IMPRESSION: No DVT seen. . ACT 112: Negative or not required by law. Electronically signed by: Erik Bass M.D. 05/13/2024 1:30 PM Chest X-Ray 05/13/24 14:27 XR chest 1V portable CLINICAL HISTORY: r/o aspiration pneumonitis COMPARISON STUDY: 01/25/2023 FINDINGS: Heart size and pulmonary vasculature are normal. No effusion, consolidation, or pneumothorax. IMPRESSION: No acute findings. ACT 112: Negative or not required by law. Electronically signed by: Erik Bass M.D. 05/13/2024 3:42 PM Pending Results Patient Have Any Pending Studies at Discharge: Yes (A1C) Discharge Instructions Given to Patient (Per Discharging Provider) MEDICATION CHANGES: Augmentin 875mg one tablet by mouth twice daily for 7 days. Next dose due on 05/16/24 in the a.m. Florastor 250mg by mouth once daily for 7 days. This is a probiotic. SUMMARY OF TEST RESULTS: You were admitted to the hospital due to Sepsis from Left leg cellulitis. You were treated with IV antibiotics and your symptoms improved. A lower extremity venous Doppler was checked and was negative for DVT. PENDING TEST RESULTS: Your A1C test result is pending due to the machine being down. Your Primary Care Provider can follow up with this result. RECOMMENDATIONS FOR FOLLOW-UP: Please establish with a Primary Care Provider upon discharge. Our [facility] Nurse Liason will be reaching out to you to set up this appointment. It is encouraged that you wear compression stockings during the day to help prevent leg swelling. Please complete antibiotic in its entirety. We discussed pre diabetes management while hospitalized. I recommend you follow up with your A1C upon discharge. If it is greater than 5.7 I would strong encourage having your new Primary Care Provider set you up with a chicken catcher to assist with weight loss for Diabetes prevention. OTHER INSTRUCTIONS: Seek medical attention if you have: * temperature above 101 * chest pain or trouble breathing * abdominal pain, nausea, vomiting * diarrhea, dark stools or bloody stools * any unanswered questions or concerns Call 911 if symptoms are severe. Please take good care of yourself. It has been a pleasure taking care of you. Please take care of yourself. If you have any questions regarding your recent hospitalization please contact [facility] and [facility] @ [phone]. Total Time Total Time Spent Total Time Spent (In Minutes): 45 minutes
[2024-05-15] MEDS: cefTRIAXone SODIUM 2,000 MG/50 ML BAG IV STA (10:21)
[2024-05-15 10:23] VITALS: BP 128/79; PULSE 104
[2024-05-17 12:06] LABS: Estimated Average Glucose 120 mg/dl; Hemoglobin A1C 5.8 % (4.5-5.6)
== END 2024-05-15 11:28 | disposition home or self-care (01) | DRG 872 ==
LOC: ED 10:18 → 2N 15:04 → INTOOBSV 15:21 → SUATTDRO 15:21 → 2N 15:21